=== PATIENT | female | born 1975 | race African-American/Black ===

== ENCOUNTER 2016-09-29 21:23 | Inpatient (IN) | payer OTHER ==
[~2016-09-29] VITALS: Ht 170.2 cm; Wt 90.9 kg
[~2016-09-29 21:23] MED LIST: BENZ1 PO; FLUP5 PO
[2016-09-29 21:25] VITALS: BP 136/79; PULSE 98; RESP 16; TEMP 98.4; O2SAT 96
[2016-09-29 23:40] VITALS: BP 142/71; PULSE 76; RESP 16; O2SAT 96
[2016-09-30 00:07] VITALS: RESP 16; O2SAT 96
[2016-09-30 00:22] LABS: BASOPHIL % 0.6 % (0.0-2.0); EOSINOPHIL # 0.1 TH/MM3 (0-0.4); EOSINOPHIL % 2.3 % (0.0-4.0); HEMATOCRIT 38.9 % (35.0-46.0); HEMO FLAGS DIFF FINAL; LYMPH % 41.2 % (9.0-44.0); LYMPHOCYTE # 2.6 TH/MM3 (1.0-4.8); MEAN CELL VOLUME 86.2 FL (80.0-100.0); MEAN CORPUSCULAR HEMOGLOBIN 28.3 PG (27.0-34.0); MEAN CORPUSCULAR HGB CONC 32.8 % (32.0-36.0); MONO % 8.4 % (0.0-8.0); NEUT % 47.5 % (16.0-70.0); PLATELET COUNT 219 TH/MM3 (150-450); RED BLOOD COUNT 4.51 MIL/MM3 (4.00-5.30); RED CELL DISTRIBUTION WIDTH 14.2 % (11.6-17.2); WHITE BLOOD COUNT 6.3 TH/MM3 (4.0-11.0)
--- NOTE | 2016-09-30 00:33 | RADRPT ---
EXAM DATE/TIME: 09/30/2016 00:24 [place] COMPARISON: CHEST PA & LAT, May 28, 2015, 14:54. INDICATIONS : Chest pain. MEDICAL HISTORY : None. SURGICAL HISTORY : None. ENCOUNTER: Initial ACUITY: 2 weeks PAIN SCORE: 5/10 LOCATION: Bilateral chest FINDINGS: The lungs are clear without infiltrate, nodule, or mass. There is no appreciable pleural effusion fo r technique. Heart and mediastinum are unremarkable. CONCLUSION: No acute cardiopulmonary disease. Fang Herrera MD on September 30, 2016 at 0:31 Board Certified Radiologist. This report was verified electronically.
[2016-09-30 00:44] LABS: ALT (GPT) 32 U/L (10-53)
[2016-09-30 00:46] LABS: ANION GAP 9 MEQ/L (5-15); AST (GOT) 39 U/L (15-37); BLOOD UREA NITROGEN 11 MG/DL (7-18); CHLORIDE 105 MEQ/L (98-107); GLOMERULAR FILTRATION RATE 104 ML/MIN (>89); POTASSIUM 3.3 MEQ/L (3.5-5.1); SODIUM (NA) 139 MEQ/L (136-145)
[2016-09-30 01:35] LABS: ACETAMINOPHEN LESS THAN 2.0 MCG/ML (10.0-30.0); ALKALINE PHOSPHATASE 80 U/L (45-117); CREATINE KINASE 985 U/L (26-192); TOTAL BILIRUBIN ADULT 0.3 MG/DL (0.2-1.0)
[2016-09-30 02:00] LABS: CKMB 4.4 NG/ML (0.5-3.6)
[2016-09-30] MEDS ORDERED: SODIUM CHLOR 0.9% 1000 ML INJ 1,000 ML IV ONE (02:00)
--- NOTE | 2016-09-30 02:21 | PD ---
HPI Chief Complaint: Psychiatric Symptoms Time Seen by Provider: 00:01 Travel History International Travel<30 days: No Contact w/Intl Traveler<30days: No Traveled to known affect area: No History of Present Illness HPI The patient is a 41 year old female who presents to the [facility] emergency department with a history of schizophrenia who reports concerns that today she has been hearing voices. She denies having any suicidal or homicidal ideations, however she reports that she cannot concentrate because of the voices. She reports that she is off of medication for schizophrenia. She cannot recall what she was last on, however she reports that she has been on Haldol and Zyprexa in the past. The patient is requesting a psychiatric screen. The patient additionally reports to me that she's had generalized body aches. The patient according to the nurse's notes also complained of a right- sided chest pain. Unfortunately, the patient has difficulty providing much of her history as she is tangential on examination. On review of systems, the patient denies any recent fevers, cough, congestion, neck pain, shortness of breath, abdominal pain, vomiting, diarrhea, urinary symptoms, or neurologic symptoms. [facility] Past Medical History Narrative Medical The patient's past medical history is significant for schizophrenia, prior history of cerebrovascular accident, diabetes mellitus, history of myocardial infarction in 1990 and 1996. Cancer: No Cardiovascular Problems: Yes ([place] 36 [place] ago) Cerebrovascular Accident: Yes (CVA 1997) Diabetes: Yes Patient Takes Glucophage: Yes Diminished Hearing: No Headaches: No Psychiatric: Yes (Paranoid Schizophrenia) Immunizations Current: Yes Myocardial Infarction: Yes (1996) Schizophrenia: Yes Seizures: No Tetanus Vaccination: Unknown Influenza Vaccination: No ?: Not LMP: 09/23/16 Menopausal: No : 3 Para: 1 Past Surgical History Narrative Surgical The patient's past surgical history is significant for an exploratory laparoscopy, prior history of cardiac surgery. Abdominal Surgery: Yes (EXLORATORY LAPROSCOPY) Cardiac Surgery: Yes ("CARDIAC IMPLANT") Social History Alcohol Use: No Tobacco Use: Yes (04/20 ppd) Substance Use: No (PT DENIES) Allergies-Medications (Allergen,Severity, Reaction): Coded Allergies: No Known Allergies (Unverified , 09/16/15) Reported Meds & Prescriptions Reported Meds & Active Scripts Active No Active Prescriptions or Reported Medications Review of Systems Except as stated in HPI: all other systems reviewed are Neg General / Constitutional: No: Fever Eyes: No: Visual changes HENT: No: Headaches Cardiovascular: Positive: Chest Pain or Discomfort (reported in right-side of chest), No: Diaphoresis, Dyspnea on exertion Respiratory: No: Shortness of Breath Gastrointestinal: No: Nausea, Vomiting, Diarrhea, Abdominal Pain Genitourinary: No: Dysuria Musculoskeletal: Positive: Myalgias, No: Pain Skin: No Rash Neurologic: No: Weakness Psychiatric: No: Depression Endocrine: No: Polydipsia Hematologic/Lymphatic: No: Easy Bruising Physical Exam Narrative General: The patient is a well-developed well-nourished female in no acute distress. Head and Neck exam: Head is normocephalic atraumatic. Eyes: EOMI, pupils are equal round and reactive to light. Nose: Midline septum with pink mucous membranes Mouth: Dentition unremarkable. Moist mucus membranes. Posterior oropharynx is not erythematous. No tonsillar hypertrophy. Uvula midline. Airway patent. Neck: No palpable lymphadenopathy. No nuchal rigidity. No thyromegaly. Cardiovascular: Regular rate and rhythm without murmurs, gallops, or rubs. No pulse deficit to the extremities. Lungs: Clear to auscultation bilaterally. No wheezes, rhonchi, or rales. Abdomen: Soft, without tenderness to palpation in all 4 quadrants of the abdomen. No guarding, rebound, or rigidity. Normal Bowel sounds are audible. No tenderness on palpation of McBurney's point. Extremities: No calf tenderness on palpation.No clubbing, cyanosis, or edema. 2 + pulses in all 4 extremities. Back: No spinous process tenderness to palpation. No costovertebral angle tenderness to palpation. Neurologic Exam: Cranial nerves 2-12 were intact on exam. Strength is 5/5 in all 4 extremities. No sensory deficits noted. Skin Exam: No rash noted. Intact skin that is warm and dry. Data Data Last Documented VS Vital Signs Date Time Temp Pulse Resp B/P Pulse Ox O2 Delivery O2 Flow Rate FiO2 09/30/16 05:32 72 16 129/66 97 Room Air 09/29/16 21:25 98.4 Orders Electrocardiogram (09/30/16 00:02) Complete Blood Count With Diff (09/30/16 00:02) Comprehensive Metabolic Panel (09/30/16 00:02) Creatine Kinase (Cpk) (09/30/16 00:02) Ckmb (Isoenzyme) Profile (09/30/16 00:02) Troponin I (09/30/16 00:02) Lipase (09/30/16 00:02) Urinalysis - C+S If Indicated (09/30/16 00:02) D-Dimer (09/30/16 00:02) Magnesium (Mg) (09/30/16 00:02) Thyroid Stimulating Hormone (09/30/16 00:02) Chest, Single Ap (09/30/16 00:02) Iv Access Insert/Monitor (09/30/16 00:02) Ecg Monitoring (09/30/16 00:02) Oximetry (09/30/16 00:02) Ed Urine Pregnancytest Poc (09/30/16 00:02) Drug Screen, Random Urine (09/30/16 00:02) Alcohol (Ethanol) (09/30/16 00:02) Salicylates (Aspirin) (09/30/16 00:02) Tylenol (Acetaminophen) (09/30/16 00:02) Psych Screen (09/30/16 00:02) Aspirin Chew (Aspirin Chew) (09/30/16 09:00) CKMB (09/30/16 00:10) CKMB% (09/30/16 00:10) Sodium Chlor 0.9% 1000 Ml Inj (Ns 1000 M (09/30/16 02:00) Labs Laboratory Tests Test 09/30/16 00:10 White Blood Count 6.3 TH/MM3 Red Blood Count 4.51 MIL/MM3 Hemoglobin 12.8 GM/DL Hematocrit 38.9 % Mean Corpuscular Volume 86.2 FL Mean Corpuscular Hemoglobin 28.3 PG Mean Corpuscular Hemoglobin 32.8 % Concent Red Cell Distribution Width 14.2 % Platelet Count 219 TH/MM3 Mean Platelet Volume 8.1 FL Neutrophils (%) (Auto) 47.5 % Lymphocytes (%) (Auto) 41.2 % Monocytes (%) (Auto) 8.4 % Eosinophils (%) (Auto) 2.3 % Basophils (%) (Auto) 0.6 % Neutrophils # (Auto) 3.0 TH/MM3 Lymphocytes # (Auto) 2.6 TH/MM3 Monocytes # (Auto) 0.5 TH/MM3 Eosinophils # (Auto) 0.1 TH/MM3 Basophils # (Auto) 0.0 TH/MM3 CBC Comment DIFF FINAL Differential Comment D-Dimer Quantitative (PE/DVT) 0.30 MG/L FEU Sodium Level 139 MEQ/L Potassium Level 3.3 MEQ/L Chloride Level 105 MEQ/L Carbon Dioxide Level 25.0 MEQ/L Anion Gap 9 MEQ/L Blood Urea Nitrogen 11 MG/DL Creatinine 0.75 MG/DL Estimat Glomerular Filtration 104 ML/MIN Rate Random Glucose 91 MG/DL Calcium Level 7.9 MG/DL Magnesium Level 2.0 MG/DL Total Bilirubin 0.3 MG/DL Aspartate Amino Transf 39 U/L (AST/SGOT) Alanine Aminotransferase 32 U/L (ALT/SGPT) Alkaline Phosphatase 80 U/L Total Creatine Kinase 985 U/L Creatine Kinase MB 4.4 NG/ML Creatine Kinase MB % 0.4 % Troponin I LESS THAN 0.02 NG/ML Total Protein 7.3 GM/DL Albumin 3.7 GM/DL Lipase 53 U/L Thyroid Stimulating Hormone 0.948 uIU/ML 3rd Gen Salicylates Level 5.1 MG/DL Acetaminophen Level LESS THAN 2.0 MCG/ML Ethyl Alcohol Level LESS THAN 3 MG/DL MDM Medical Decision Making Medical Screen Exam Complete: Yes Emergency Medical Condition: Yes Medical Record Reviewed: Yes Interpretation(s) Last Impressions Chest X-Ray 09/30/16 0002 Signed Impressions: Service Date/Time: Friday, September 30, 2016 00:24 - CONCLUSION: No acute cardiopulmonary disease. Fang Herrera MD Differential Diagnosis Exacerbation of schizophrenia due to medication noncompliance, versus substance induced mood disorder Narrative Course During the course of the patients emergency department visit, the patients history, examination, and differential diagnosis were reviewed with the patient. The patient had IV access obtained and blood work sent for analysis. The patient was placed on a tree tapping laborer with oximetry and blood pressure monitoring. An EKG was ordered. A psychiatric screen was ordered. The patient was initially provided aspirin and 62 mg by mouth 1, normal saline 1 L IV fluid bolus was administered. The patients laboratory studies were reviewed and remarkable for a CBC that shows a white count of 6.3, hemoglobin 12.8, platelets 219 with 8.4 monocytes. CMP is remarkable for potassium of 3.3 which was supplemented orally, calcium 7.9, AST 39, CPK 9085, CK-MB percent 0.4, troponin I less than 0.02, lipase 53, TSH 0.948, d-dimer 0.3 decreased the likelihood of pulmonary embolism in this patient with no other significant risk factors, acetaminophen less than 2, alcohol level less than 3, salicylate 5.1 Radiology studies were reviewed and remarkable for a chest x-ray that shows no acute abnormality. The patient has been medically cleared for evaluation by the psychiatric screener. The patient reports that she would like to be seen by the psychiatric screener as she is currently having auditory hallucinations. She reports having a history of schizophrenia and was previously on antipsychotics. Diagnosis Primary Impression: Paranoid schizophrenia Scripts No Active Prescriptions or Reported Meds Medina Chappell MD Sep 30, 2016 02:21
[2016-09-30 05:32] VITALS: BP 129/66; PULSE 72; RESP 16; O2SAT 97
--- NOTE | 2016-09-30 07:48 | EKG ---
Date Performed: 09/30/2016 Time Performed: 06:09:30 PTAGE: 41 years EKG: SINUS BRADYCARDIA BORDERLINE ECG NO SIGNIFICANT CHANGE FROM PRIOR ELECTROCARDIOGRAM. PREVIOUS TRACING : 12/15/2014 06.56 DOCTOR: Kleber Hendricks Interpretating Date/Time 10/02/2016 07:35:37
--- NOTE | 2016-09-30 07:58 | EKG ---
Date Performed: 09/29/2016 Time Performed: 23:37:06 PTAGE: 41 years EKG: Sinus rhythm NORMAL ECG NO PREVIOUS TRACING DOCTOR: Kleber Hendricks Interpretating Date/Time 09/30/2016 07:57:03
[2016-09-30] MEDS: ASPIRIN 81 MG CHEW TAB CHEW SCH (09:13)
[2016-09-30] MEDS ORDERED: ACETAMINOPHEN 325 MG TAB PO PRN (10:00)
[2016-09-30] MEDS ORDERED: diphenhydrAMINE HCL 50 MG/ML VIAL IM PRN (10:00)
[2016-09-30] MEDS ORDERED: LORazepam 0.5 MG TAB PO PRN (10:00)
[2016-09-30] MEDS ORDERED: LORazepam 2 MG/ML VIAL IM PRN ×2 (10:00)
[2016-09-30] MEDS ORDERED: MAGNESIUM HYDROXIDE SUSP 30 ML CUP PO PRN (10:00)
[2016-09-30] MEDS ORDERED: diphenhydrAMINE HCL 50 MG CAP PO PRN (10:00)
[2016-09-30] MEDS ORDERED: ALUMINUM/MAGNESIUM/SIMETH 30 ML CUP PO PRN (10:00)
--- NOTE | 2016-09-30 10:16 | HHI.HP ---
Provisional Diagnosis Admission Date Sep 30, 2016 at 09:59 [place] I. Chronic paranoid schizophrenia Certification of Person's Competence To Provide Express and Informed Consent I have personally examined Chrissie Ramirez , a person being served at [facility] on, Sep 30, 2016 10:04. Express and informed consent means consent voluntarily given in writing, by a competent person, after sufficient explanation and disclosure of the subject matter involved to enable the person to make a knowing and willful decision without any element of force, fraud, deceit, duress, or other form of constraint or coercion. This person is 18 years of age or older, is not now known to be incompetent to consent to treatment with a guardian advocate, and does not have a health care surrogate or proxy currently making medical treatment decisions. I have found this person to be one of the following: [X] Competent to provide express and informed consent, as defined above, for voluntary admission to this facility and is competent to provide express and informed consent for treatment. He/she has the consistent capacity to make well reasoned, willful, and knowing decisions concerning his or her medical or mental health treatment. The person fully and consistently understands the purpose of the admission for examination/placement and is fully capable of personally exercising all rights assured [place] [] Incompetent to provide express and informed consent to voluntary admission, and this is incompetent to provide express and informed consent to treatment. The person must be transferred to involuntary status and a petition for a guardian advocate filed with the Circuit Court. [] Refusing to provide express and informed consent to voluntary admission but is competent to provide express and informed consent for treatment. The person must be discharged or transferred to involuntary status. Form shall be completed within 24 hours of a person's arrival at the receiving facility and filed in the clinical record of each person: 1. Admitted on a voluntary basis 2. Permitted to provide express and informed consent to his/her own treatment 3. Allowed to transfer from involuntary to voluntary status 4. Prior to permitting a person to consent to his or her own treatment after having been previously found incompetent to consent to treatment. History of Present Illness Capacity: Has Capacity HPI This is a 41-year-old female with a long history of chronic paranoid schizophrenia. She has been admitted to this institution in 2014 with the same diagnosis. She came into the emergency department last evening, voluntarily, complaining of auditory hallucinations. She tells this physician the auditory hallucinations are negativistic in nature and say derogatory things about her as well as give her commands to harm herself. However, she is unable to be specific as she is a poor historian due to frequent looseness of associations. She is making inappropriate comments such as the [employer] has been sold and [place] with. She admits to being noncompliant with psychotropic medications but lists Risperdal and Depakote as to that she has taken in the past. She is unable to care for herself at this time because her thoughts are disturbed by the hallucinations, which create thought blocking. She is also noted to have a markedly elevated CPK and she was complaining of chest pain last night due to her psychotic symptoms, including command auditory hallucinations, paranoid thinking, loose associations, and medical problems including diabetes, history of CVA and history of GA, the patient is felt to be unable to care for herself and in danger of harming herself. Review of Systems ROS Limitations: Clinical Condition, Psychotic Past Psych History Psychological trauma history Previously diagnosed with chronic paranoid schizophrenia. Violence risk - others (6 mos) Minimal Violence risk - self (6 mos) Moderate to severe. Substance Abuse History Drugs/Alcohol past 12 months Denied at this time. Past Family Social History Coded Allergies: No Known Allergies (Unverified , 09/16/15) No Active Prescriptions or Reported Meds Current Medications Medications (Trade) Dose Ordered Sig/Tan Route Start Time Stop Time Status Last Admin (Aspirin Chew) 162 mg DAILY CHEW 09/30/16 09:00 09/30/16 09:13 Family History Unknown due to patient's psychosis. Social History Patient is not employed. She does receive disability. She denies a history of alcohol or drug abuse. Toxicology screen was negative today. She does have multiple medical issues including diabetes, heart disease and history of CVA. Patient's Strengths (min. 2) Resilient and has access to healthcare. Physical Exam GENERAL: SKIN: Warm and dry. HEAD: Normocephalic. EYES: No scleral icterus. No injection or drainage. NECK: Supple, trachea midline. No JVD or lymphadenopathy. CARDIOVASCULAR: Regular rate and rhythm without murmurs, gallops, or rubs. RESPIRATORY: Breath sounds equal bilaterally. No accessory muscle use. GASTROINTESTINAL: Abdomen soft, non-tender, nondistended. MUSCULOSKELETAL: No cyanosis, or edema. BACK: Nontender without obvious deformity. No CVA tenderness. Vital Signs Vital Signs Date Time Temp Pulse Resp B/P Pulse Ox O2 Delivery O2 Flow Rate FiO2 09/30/16 05:32 72 16 129/66 97 Room Air 09/29/16 21:25 98.4 Mental Status Examination Speech: Unremarkable, Other Orientation: x3 Memory: Unremarkable Thought Process: Loose Association Thought Content: Bizarre thinking, Paranoid Hallucination Type: Auditory Attention and Concentration: Abnormal Suicidal Ideation: No Previous Suicide Attempts: No Homicidal Ideation: No Previous Homicide Attempts: No Insight: Fair Judgment: Unrealistic Affect: Anxious Affect if Inappropriate: Blunt Mood: Appropriate, Anxious Motor Activity: Extra pyramidal symptoms Assessment & Plan Problem List: (1) Paranoid schizophrenia ICD Code: F20.0 Assessment & Plan Estimated LOS: 7 days 41-year-old patient with long history of chronic paranoid schizophrenia, having an acute exacerbation and multiple medical issues. Patient's psychosis is demonstrated by her auditory hallucinations, which are disturbing to her and of a command and derogatory nature. She is also demonstrating loose associations and paranoid thinking, reporting the [employer] has been taken. She is having difficulty with managing her multiple medical issues including diabetes, heart disease, and elevated CPK. This physician finds she is at significant danger of self neglect and self- harm. She is being admitted to the psychiatry inpatient unit for stabilization on psychiatric medications, which she admits she has been noncompliant with. She also requires stabilization regarding her multiple medical conditions. This physician has ordered a hospital consult for this. Also ordered was a comprehensive metabolic profile and lipid profile to measure the patient's degree of diabetic control, lipid appropriateness and possible need for medication management. We are ordering a CBC to determine if infection is possible. An EKG is being ordered to evaluate her cardiac condition before implementing antipsychotic therapies and possibly aggravating her underlying heart disease. This physician spoke with the patient's nurse regarding her inability to care for herself. Finally, case workers will be asked to obtain more information regarding her past psychiatric treatment, family support and living situation. Harshad Foley MD Sep 30, 2016 10:15
[2016-09-30 10:17] VITALS: BP 169/80; PULSE 69; RESP 18; TEMP 98.5; O2SAT 96
[2016-09-30 12:35] VITALS: BP 169/80; TEMP 98
[2016-09-30 13:26] VITALS: BP 139/79; PULSE 64; RESP 16; O2SAT 96
--- NOTE | 2016-09-30 14:25 | EKG ---
Date Performed: 09/30/2016 Time Performed: 07:25:42 PTAGE: 41 years EKG: Sinus rhythm PROLONGED QT INTERVAL ABNORMAL ECG NO SIGNIFICANT CHANGE FROM PRIOR ELECTROCARDIOGRAM. PREVIOUS TRACING : 09/30/2016 06.09 DOCTOR: Kleber Hendricks Interpretating Date/Time 09/30/2016 14:25:01
--- NOTE | 2016-09-30 15:57 | PD.CONS ---
[facility] By Dr. Foley Reason for Consult Elevated CPK Primary Care Physician No Primary Care Physician Diagnoses: History of Present Illness Written by VIKKI Toussaint acting as scribe for [Kit] on 09/30/16 at 14:26. 41 y/o female with a history of schizoaffective disorder came to the hospital for auditory hallucinations. [facility] was consulted for an elevated CPK level found on admission. Patient received 1L NS in the ED. She denies any other medical history, denies any muscle pain, or sob. She states she is just hungry. Review of Systems Constitutional: DENIES: Fever, Chills Respiratory: DENIES: Cough, Sputum production, Shortness of breath Cardiovascular: DENIES: Chest pain Gastrointestinal: DENIES: Constipation, Diarrhea, Nausea, Vomiting Musculoskeletal: DENIES: Muscle aches, Back pain, Neck pain Neurologic: DENIES: Headache, Localized weakness Past Family Social History Allergies: Coded Allergies: No Known Allergies (Unverified , 09/16/15) Past Medical History Schizoaffective disorder Past Surgical History Patient denies any surgeries Reported Medications Reported Meds & Active Scripts Active No Active Prescriptions or Reported Medications Active Ordered Medications Current Medications Medications (Trade) Dose Ordered Sig/Tan Route Start Time Stop Time Status Last Admin (Aspirin Chew) 162 mg DAILY CHEW 09/30/16 09:00 09/30/16 09:13 (Ativan) 1 mg Q6H PRN PO 09/30/16 10:00 (Ativan Inj) 1 mg Q6H PRN IM 09/30/16 10:00 (Benadryl) 50 mg Q6H PRN PO 09/30/16 10:00 (Benadryl Inj) 50 mg Q6H PRN IM 09/30/16 10:00 (Tylenol) 650 mg Q4H PRN PO 09/30/16 10:00 (Milk Of Magnesia Liq) 30 ml DAILY PRN PO 09/30/16 10:00 (Mag-Al Plus Susp Liq) 30 ml Q6H PRN PO 09/30/16 10:00 (Habitrol 21 Mg Patch.24 Hr) 1 patch DAILY T-DERMAL 10/01/16 09:00 (Desyrel) 50 mg HS PRN PO 09/30/16 21:00 Miscellaneous Information 1 HS T-DERMAL 10/01/16 21:00 Family History Patient denies any family history Social History Patient denies any tobacco, alcohol or illicit drugs Physical Exam Vital Signs Vital Signs Date Time Temp Pulse Resp B/P Pulse Ox O2 Delivery O2 Flow Rate FiO2 09/30/16 13:26 64 16 139/79 96 09/30/16 12:35 98.0 69 18 169/80 98 09/30/16 10:17 98.5 69 18 169/80 96 Room Air 09/30/16 05:32 72 16 129/66 97 Room Air 09/30/16 00:07 16 96 Room Air 09/29/16 23:40 76 16 142/71 96 Room Air 09/29/16 23:35 98 18 09/29/16 21:25 98.4 98 16 136/79 96 Room Air Physical Exam GENERAL: This is a well-nourished, well-developed patient, in no apparent distress. SKIN: No rashes, ecchymoses or lesions. Cool and dry. HEAD: Atraumatic. Normocephalic. EYES: Pupils equal round and reactive. ENT: Nose without bleeding, purulent drainage or septal hematoma. NECK: Trachea midline. No JVD or lymphadenopathy. Supple, nontender, no meningeal signs. CARDIOVASCULAR: Regular rate and rhythm without murmurs, gallops, or rubs. RESPIRATORY: Clear to auscultation. Breath sounds equal bilaterally. No wheezes , rales, or rhonchi. GASTROINTESTINAL: Abdomen soft, non-tender, nondistended. No guarding. MUSCULOSKELETAL: Extremities without clubbing, cyanosis, or edema. No calf tenderness. NEUROLOGICAL: Awake and alert. Motor and sensory grossly within normal limits. Normal speech. Laboratory Laboratory Tests Test 09/30/16 00:10 White Blood Count 6.3 Red Blood Count 4.51 Hemoglobin 12.8 Hematocrit 38.9 Mean Corpuscular Volume 86.2 Mean Corpuscular Hemoglobin 28.3 Mean Corpuscular Hemoglobin 32.8 Concent Red Cell Distribution Width 14.2 Platelet Count 219 Mean Platelet Volume 8.1 Neutrophils (%) (Auto) 47.5 Lymphocytes (%) (Auto) 41.2 Monocytes (%) (Auto) 8.4 Eosinophils (%) (Auto) 2.3 Basophils (%) (Auto) 0.6 Neutrophils # (Auto) 3.0 Lymphocytes # (Auto) 2.6 Monocytes # (Auto) 0.5 Eosinophils # (Auto) 0.1 Basophils # (Auto) 0.0 CBC Comment DIFF FINAL Differential Comment D-Dimer Quantitative (PE/DVT) 0.30 Sodium Level 139 Potassium Level 3.3 Chloride Level 105 Carbon Dioxide Level 25.0 Anion Gap 9 Blood Urea Nitrogen 11 Creatinine 0.75 Estimat Glomerular Filtration 104 Rate Random Glucose 91 Calcium Level 7.9 Magnesium Level 2.0 Total Bilirubin 0.3 Aspartate Amino Transf 39 (AST/SGOT) Alanine Aminotransferase 32 (ALT/SGPT) Alkaline Phosphatase 80 Total Creatine Kinase 985 Creatine Kinase MB 4.4 Creatine Kinase MB % 0.4 Troponin I LESS THAN 0.02 Total Protein 7.3 Albumin 3.7 Lipase 53 Thyroid Stimulating Hormone 0.948 3rd Gen Salicylates Level 5.1 Acetaminophen Level LESS THAN 2.0 Ethyl Alcohol Level LESS THAN 3 Result Diagram: 09/30/16 0010 09/30/16 0010 Assessment and Plan Problem List: (1) Paranoid schizophrenia ICD Code: F20.0 Status: Acute (2) Rhabdomyolysis ICD Code: M62.82 Status: Acute Assessment and Plan 41 y/o female with a history of schizoaffective disorder came to the hospital for auditory hallucinations. [facility] was consulted for an elevated CPK level found on admission. Paranoid schizophrenia -managed by psychiatry Mild Rhabdomyolysis CPK 985 -CPK level in AM -Encourage PO Fluids DVT prophylaxis: Ambulation Discussed Condition With Patient LauraMonie laughlin VIKKI Sep 30, 2016 15:57
[2016-09-30] MEDS: LORazepam 1 MG TAB PO PRN (17:00)
[2016-09-30 17:52] VITALS: BP 156/60; PULSE 65; RESP 18; TEMP 97.9; O2SAT 96
[2016-10-01 05:10] VITALS: BP 121/63; PULSE 71; RESP 16; TEMP 98.1; O2SAT 98
[2016-10-01] MEDS: ASPIRIN 81 MG CHEW TAB CHEW SCH (08:13)
[2016-10-01] MEDS ORDERED: NICOTINE 21 MG/24 HR PATCH T-DERMAL SCH (09:00)
[2016-10-01 11:10] LABS: AUTOMATED NEUTROPHIL # 2.3 TH/MM3 (1.8-7.7); BASOPHIL % 0.5 % (0.0-2.0); EOSINOPHIL # 0.1 TH/MM3 (0-0.4); EOSINOPHIL % 2.9 % (0.0-4.0); HEMATOCRIT 37.4 % (35.0-46.0); HEMO FLAGS DIFF FINAL; LYMPH % 39.1 % (9.0-44.0); LYMPHOCYTE # 1.8 TH/MM3 (1.0-4.8); MEAN CELL VOLUME 85.4 FL (80.0-100.0); MEAN CORPUSCULAR HEMOGLOBIN 28.5 PG (27.0-34.0); MEAN CORPUSCULAR HGB CONC 33.3 % (32.0-36.0); MONO % 9.2 % (0.0-8.0); NEUT % 48.3 % (16.0-70.0); PLATELET COUNT 200 TH/MM3 (150-450); RED BLOOD COUNT 4.38 MIL/MM3 (4.00-5.30); RED CELL DISTRIBUTION WIDTH 13.8 % (11.6-17.2); WHITE BLOOD COUNT 4.7 TH/MM3 (4.0-11.0)
[2016-10-01 11:26] LABS: ANION GAP 8 MEQ/L (5-15); AST (GOT) 20 U/L (15-37); BICARBONATE 27.7 MEQ/L (21.0-32.0); BLOOD UREA NITROGEN 10 MG/DL (7-18); CHLORIDE 106 MEQ/L (98-107); GLOMERULAR FILTRATION RATE 137 ML/MIN (>89); POTASSIUM 3.5 MEQ/L (3.5-5.1); SODIUM (NA) 142 MEQ/L (136-145)
[2016-10-01 11:53] LABS: ALKALINE PHOSPHATASE 69 U/L (45-117); ALT (GPT) 22 U/L (10-53); CREATINE KINASE 479 U/L (26-192); HDL CHOLESTEROL 43.8 MG/DL (40.0-60.0); LDL CHOLESTEROL 108 MG/DL (0-99); TOTAL BILIRUBIN ADULT 0.2 MG/DL (0.2-1.0)
[2016-10-01 12:06] LABS: CKMB 2.5 NG/ML (0.5-3.6)
--- NOTE | 2016-10-01 13:01 | HHI.PYPN ---
Subjective Remarks Patient seen and examined with counselor and nurse. Chart reviewed. Case discussed with nursing staff who reports that the patient has been somewhat behaviorally disorganized and internally stimulated. She also notes that the patient needed prompting for her ADLs. On my examination today, the patient reports that she has been experiencing auditory hallucinations commenting on her actions for a few weeks without clear trigger. She denies any command auditory hallucinations. She says that she has been off of her psychotropic medications for 3 months. She endorses some low mood and associated depressive symptoms but denies any suicidal or homicidal ideation. Her sleep and appetite are fair. The patient articulated more delusional material to the counselor including that she has 3000 children. The patient reports that Risperdal works best for her. No physical complaints. Review of Systems ROS Limitations: Psychotic, Poor Historian Except as stated in HPI: all other systems reviewed are Neg Objective Alert: Yes [place]: Person, Place, Situation Mood: Depressed Affect: Flat Memory Intact: Comment (not formally assessed) Hallucinations: Auditory (commenting) Delusions: Yes Delusion Type: Paranoid Suicidal: Ideation (denies SI) Homicidal: Ideation (denies HI) Insight/Judgment Poor Remarks No motor abnormalities noted. Thought process fairly linear. Grooming and hygiene poor. Speech somewhat slow with increased speech latency. Labs Test 10/01/16 10:25 White Blood Count 4.7 TH/MM3 Red Blood Count 4.38 MIL/MM3 Hemoglobin 12.5 GM/DL Hematocrit 37.4 % Mean Corpuscular Volume 85.4 FL Mean Corpuscular Hemoglobin 28.5 PG Mean Corpuscular Hemoglobin 33.3 % Concent Red Cell Distribution Width 13.8 % Platelet Count 200 TH/MM3 Mean Platelet Volume 8.4 FL Neutrophils (%) (Auto) 48.3 % Lymphocytes (%) (Auto) 39.1 % Monocytes (%) (Auto) 9.2 % Eosinophils (%) (Auto) 2.9 % Basophils (%) (Auto) 0.5 % Neutrophils # (Auto) 2.3 TH/MM3 Lymphocytes # (Auto) 1.8 TH/MM3 Monocytes # (Auto) 0.4 TH/MM3 Eosinophils # (Auto) 0.1 TH/MM3 Basophils # (Auto) 0.0 TH/MM3 CBC Comment DIFF FINAL Differential Comment Sodium Level 142 MEQ/L Potassium Level 3.5 MEQ/L Chloride Level 106 MEQ/L Carbon Dioxide Level 27.7 MEQ/L Anion Gap 8 MEQ/L Blood Urea Nitrogen 10 MG/DL Creatinine 0.59 MG/DL Estimat Glomerular Filtration 137 ML/MIN Rate Random Glucose 77 MG/DL Calcium Level 8.0 MG/DL Total Bilirubin 0.2 MG/DL Aspartate Amino Transf 20 U/L (AST/SGOT) Alanine Aminotransferase 22 U/L (ALT/SGPT) Alkaline Phosphatase 69 U/L Total Creatine Kinase 479 U/L Creatine Kinase MB 2.5 NG/ML Creatine Kinase MB % 0.5 % Total Protein 6.3 GM/DL Albumin 3.2 GM/DL Triglycerides Level 82 MG/DL Cholesterol Level 168 MG/DL LDL Cholesterol 108 MG/DL HDL Cholesterol 43.8 MG/DL Cholesterol/HDL Ratio 3.83 RATIO Vitamin B12 Level 507 PG/ML 25-Hydroxy Vitamin D Total 17.6 ng/ML Thyroid Stimulating Hormone 0.552 uIU/ML 3rd Gen Valproic Acid (Depakene) Level LESS THAN 3 MCG/ML Labs reviewed. CBC unremarkable. CMP fairly unremarkable. TSH within normal limits. Vitamin D level low. Vitamin B12 level within normal limits. CK is downtrending. EKG read as sinus rhythm with QTC within normal limits. Vitals/IOs Vital Signs Date Time Temp Pulse Resp B/P Pulse Ox O2 Delivery O2 Flow Rate FiO2 10/01/16 05:10 98.1 71 16 121/63 98 09/30/16 10:17 Room Air Intake and Output 09/30/16 09/30/16 10/01/16 08:00 16:00 00:00 Intake Total 360 ml Balance 360 ml Assessment & Plan Problem List: (1) Paranoid schizophrenia ICD Code: F20.0 Assessment & Plan Initiate Risperdal 1 mg twice daily with plans to titrate to effect. Could consider long-acting injectable form of Risperdal. Trend CK and BMP. Continue to monitor on the inpatient unit. Continue other medications and care as ordered. Justification for Cont. Inpt. Impairment in reality construction. Medication changes in process. High risk for decompensation in a less restrictive environment. Discharge Planning Pending psychiatric stabilization. Request HC Surrog/Guard Advoc?: No Jens Arriaza MD Oct 01, 2016 13:01
[2016-10-01] MEDS: LORazepam 1 MG TAB PO PRN ×2 (13:13→21:06)
[2016-10-01] MEDS ORDERED: risperiDONE 1 MG TAB PO ONE (13:15)
--- NOTE | 2016-10-01 13:33 | HHI.PR ---
Subjective Remarks Patient reports she is feeling okay. She is eating and drinking well. She denies any muscle cramps or pain. Objective Vitals Vital Signs Date Time Temp Pulse Resp B/P Pulse Ox O2 Delivery O2 Flow Rate FiO2 10/01/16 05:10 98.1 71 16 121/63 98 09/30/16 17:52 97.9 65 18 156/60 96 I/O 09/30/16 09/30/16 09/30/16 10/01/16 10/01/16 10/01/16 07:00 15:00 23:00 07:00 15:00 23:00 Intake Total 360 ml Balance 360 ml Intake Oral 360 ml Result Diagram: 10/01/16 1025 10/01/16 1025 Imaging Last Impressions Chest X-Ray 09/30/16 0002 Signed Impressions: Service Date/Time: Friday, September 30, 2016 00:24 - CONCLUSION: No acute cardiopulmonary disease. Fang Herrera MD Objective Remarks GENERAL: This is a well-nourished, well-developed patient, in no apparent distress. CARDIOVASCULAR: Normal rate and regular rhythm without murmurs, gallops, or rubs. RESPIRATORY: Good respiratory efforts. Breath sounds equal and clear to auscultation bilaterally. GASTROINTESTINAL: Abdomen soft, non-tender, non-distended. Normal active bowel sounds MUSCULOSKELETAL: Extremities without cyanosis, or edema. NEURO: Alert & Oriented. Moves all ext x4. Normal speech PSYCH: Anxious A/P Problem List: (1) Paranoid schizophrenia ICD Code: F20.0 Status: Acute (2) Rhabdomyolysis ICD Code: M62.82 Status: Acute Assessment and Plan 41 y/o female admits to psychiatric unit for artery kentrell hallucinations. Hospitalist service following for elevated CPK found on admission. Paranoid schizophrenia -Management per psychiatry Mild Rhabdomyolysis CPK 985>>> 400s -Patient remained asymptomatic. Continue to encourage oral fluid intake. Patient is stable from a medical standpoint. Will sign off. Please call or reconsult with questions. Dano Pantoja MD Oct 01, 2016 13:32
--- NOTE | 2016-10-01 15:26 | EKG ---
Date Performed: 10/01/2016 Time Performed: 07:44:13 PTAGE: 41 years EKG: Sinus rhythm NORMAL ECG Compared to prior tracing no significant change PREVIOUS TRACING : 09/30/2016 07.25 DOCTOR: Rhett Luna Interpretating Date/Time 10/01/2016 15:24:55
[2016-10-01 15:58] VITALS: BP 121/75; PULSE 73; RESP 17; TEMP 97.2; O2SAT 99
[2016-10-01 16:38] LABS: HEMOGLOBIN A1b 1.6 %; HEMOGLOBIN Ao 85.9 %; HEMOGLOBIN LA1C 1.8 %; HEMOGLOBIN P3 3.6 %
[2016-10-01] MEDS ORDERED: REMOVE OLD NICODERM (NICOTINE) PATCH T-DERMAL SCH (21:00)
[2016-10-01] MEDS: risperiDONE 1 MG TAB PO SCH (21:06)
[2016-10-02 06:25] VITALS: BP 124/80; PULSE 82; RESP 18; TEMP 98.1; O2SAT 98
[2016-10-02] MEDS: ASPIRIN 81 MG CHEW TAB CHEW SCH (09:02)
[2016-10-02] MEDS: CHOLECALCIFEROL (VIT D3) 1000 UNIT TAB PO SCH (09:03)
[2016-10-02] MEDS: risperiDONE 1 MG TAB PO SCH ×2 (09:15→20:48)
[2016-10-02 10:39] LABS: BICARBONATE 27.2 MEQ/L (21.0-32.0); POTASSIUM 3.3 MEQ/L (3.5-5.1)
--- NOTE | 2016-10-02 11:28 | HHI.PYPN ---
Subjective Remarks Patient seen and examined with counselor and nurse. Chart reviewed. Case discussed with nursing staff who reports that the patient has been seclusive to room but has been somewhat more reactive with regards to her affect. On my examination today, the patient does indeed seem more interactive with a brighter affect. She denies any suicidal or homicidal ideation. She denies any audiovisual hallucinations. No marilu delusional material, even when I try to question her along the lines of the material that the counselor elicited yesterday. She reports that she resides in a facility called [facility] Denies side effects from Risperdal, says that she usually takes 2mg BID. Review of Systems ROS Limitations: Poor Historian Except as stated in HPI: all other systems reviewed are Neg Objective Alert: Yes [place]: Person, Place, Situation Mood: Calm Affect: Appropriate Memory Intact: Comment (Seems fair on clinical exam) Hallucinations: Other (denies AVH today) Delusions: No Delusion Type: Other (no marilu delusional material) Suicidal: Ideation (denies suicidal ideation) Homicidal: Ideation (denies homicidal ideation) Insight/Judgment Poor Remarks No motor abnormalities noted. Grooming and hygiene fair. Thought process seems fairly linear. Labs Test 10/02/16 08:52 Sodium Level 141 MEQ/L Potassium Level 3.3 MEQ/L Chloride Level 105 MEQ/L Carbon Dioxide Level 27.2 MEQ/L Anion Gap 9 MEQ/L Blood Urea Nitrogen 9 MG/DL Creatinine 0.65 MG/DL Estimat Glomerular Filtration 122 ML/MIN Rate Random Glucose 89 MG/DL Calcium Level 8.1 MG/DL Total Creatine Kinase 366 U/L Labs reviewed. CK continues to trend downward. Hypokalemia noted. Vitals/IOs Vital Signs Date Time Temp Pulse Resp B/P Pulse Ox O2 Delivery O2 Flow Rate FiO2 10/02/16 06:25 98.1 82 18 124/80 98 09/30/16 10:17 Room Air Assessment & Plan Problem List: (1) Paranoid schizophrenia ICD Code: F20.0 Assessment & Plan Plan to titrate Risperdal through the weekend with target dose of 2 mg twice daily. To consider long-acting injectable antipsychotic. Replete potassium and recheck potassium level in the morning. Encourage fluids and recheck a CK in the morning. Continue to monitor on the inpatient unit. Continue other medications and care as ordered. Justification for Cont. Inpt. Medication changes in process. High risk for decompensation pending psychiatric stabilization. Discharge Planning Anticipate discharge after the weekend if patient continues to improve. Request HC Surrog/Guard Advoc?: No Jens Arriaza MD Oct 02, 2016 11:28
[2016-10-02] MEDS ORDERED: PILL SPLITTER OTHER PRN (11:45)
[2016-10-02] MEDS ORDERED: POTASSIUM CHLORIDE 10 MEQ CONTROLLED RELEASE TAB PO ONE (12:00)
[2016-10-02 12:07] LABS: CKMB 1.9 NG/ML (0.5-3.6)
[2016-10-02] MEDS: LORazepam 1 MG TAB PO PRN (16:09)
[2016-10-02 19:12] VITALS: BP 136/68; PULSE 66; RESP 17; TEMP 97.1; O2SAT 98
[2016-10-02] MEDS: traZODone HCL 50 MG TAB PO PRN (20:48)
[2016-10-03 06:14] VITALS: BP 128/57; PULSE 60; RESP 18; TEMP 98.2; O2SAT 97
[2016-10-03] MEDS: ASPIRIN 81 MG CHEW TAB CHEW SCH (08:29)
[2016-10-03] MEDS: CHOLECALCIFEROL (VIT D3) 1000 UNIT TAB PO SCH (08:29)
[2016-10-03] MEDS: risperiDONE 1 MG TAB PO SCH ×2 (08:31→21:00)
[2016-10-03 09:45] LABS: POTASSIUM 3.9 MEQ/L (3.5-5.1)
[2016-10-03 10:11] LABS: CKMB 1.7 NG/ML (0.5-3.6)
--- NOTE | 2016-10-03 14:23 | HHI.PYPN ---
Subjective Remarks Patient was seen and case discussed with nursing. Patient interviewed in bed. Per nursing patient has been secluded. Patient says that her auditory hallucinations are resolved. No specific delusions elicited. Thought process remains disorganized and tangential. Compliant with medications and tolerating them well. Denies suicidal ideation intent or plan Objective Alert: Yes [place]: Person, Place, Situation Mood: Calm Affect: Appropriate Memory Intact: Comment (Seems fair on clinical exam) Hallucinations: Other (denies AVH today) Delusions: No Delusion Type: Other (no marilu delusional material) Suicidal: Ideation (denies suicidal ideation) Homicidal: Ideation (denies homicidal ideation) Insight/Judgment Poor Labs Test 10/03/16 09:07 Potassium Level 3.9 MEQ/L Total Creatine Kinase 296 U/L Creatine Kinase MB 1.7 NG/ML Creatine Kinase MB % 0.6 % Vitals/IOs Vital Signs Date Time Temp Pulse Resp B/P Pulse Ox O2 Delivery O2 Flow Rate FiO2 10/03/16 06:14 98.2 60 18 128/57 97 09/30/16 10:17 Room Air Intake and Output 10/02/16 10/02/16 10/03/16 08:00 16:00 00:00 Intake Total 240 ml Balance 240 ml Assessment & Plan Problem List: (1) Paranoid schizophrenia ICD Code: F20.0 Assessment & Plan Continue current treatment plan Justification for Cont. Inpt. Patient will decompensate in a less restrictive setting Request HC Surrog/Guard Advoc?: No Franklin Soto DO Oct 03, 2016 14:22
[2016-10-03 18:00] VITALS: BP 128/91; PULSE 73; RESP 18; TEMP 98.2; O2SAT 97
[2016-10-04 05:44] VITALS: BP 145/82; PULSE 68; RESP 18; TEMP 98.1; O2SAT 97
[2016-10-04] MEDS: ASPIRIN 81 MG CHEW TAB CHEW SCH (08:57)
[2016-10-04] MEDS: CHOLECALCIFEROL (VIT D3) 1000 UNIT TAB PO SCH (08:57)
[2016-10-04] MEDS: risperiDONE 1 MG TAB PO SCH ×2 (09:01→21:20)
--- NOTE | 2016-10-04 13:47 | HHI.PYPN ---
Subjective Remarks Patient was seen and case discussed with nursing. Patient interviewed in bed, per nursing she is less seclusive and went outside for fresh air. No delusional material was elicited today. Patient denies auditory visual hallucinations. Per nursing, she is less occupied. Compliant with medications Objective Alert: Yes [place]: Person, Place, Date, Situation Mood: Calm Affect: Appropriate Memory Intact: Comment (Seems fair on clinical exam) Hallucinations: Other (denies AVH today) Delusions: No Delusion Type: Other (no marilu delusional material) Suicidal: Ideation (denies suicidal ideation) Homicidal: Ideation (denies homicidal ideation) Insight/Judgment Improving Vitals/IOs Vital Signs Date Time Temp Pulse Resp B/P Pulse Ox O2 Delivery O2 Flow Rate FiO2 10/04/16 05:44 98.1 68 18 145/82 97 09/30/16 10:17 Room Air Assessment & Plan Problem List: (1) Paranoid schizophrenia ICD Code: F20.0 Assessment & Plan Continue current treatment plan Justification for Cont. Inpt. Patient will decompensate in a less restrictive setting Request HC Surrog/Guard Advoc?: No Franklin Soto DO Oct 04, 2016 13:47
[2016-10-04 15:34] VITALS: BP 134/77; PULSE 95; RESP 18; TEMP 99.1; O2SAT 100
--- NOTE | 2016-10-04 16:11 | HHI.PYPN ---
Subjective Remarks Patient was seen and case discussed with nursing. Patient is pleasant and cooperative with exam. Remains mildly guarded during the interview. Per nursing she continues to be very seclusive to her room and only comes out for meals. Denies auditory or visual hallucinations. No delusions elicited. Since our conversation yesterday she is now compliant with her vital signs Objective Alert: Yes [place]: Person, Place, Date, Situation Mood: Calm Affect: Appropriate Memory Intact: Comment (Seems fair on clinical exam) Hallucinations: Other (denies AVH today) Delusions: No Delusion Type: Other (no marilu delusional material) Suicidal: Ideation (denies suicidal ideation) Homicidal: Ideation (denies homicidal ideation) Insight/Judgment Poor Vitals/IOs Vital Signs Date Time Temp Pulse Resp B/P Pulse Ox O2 Delivery O2 Flow Rate FiO2 10/04/16 15:34 99.1 95 18 134/77 100 09/30/16 10:17 Room Air Assessment & Plan Problem List: (1) Paranoid schizophrenia ICD Code: F20.0 Assessment & Plan Continue current treatment plan Justification for Cont. Inpt. Patient will decompensate in a less restrictive setting Request HC Surrog/Guard Advoc?: No Franklin Soto DO Oct 04, 2016 16:11
[2016-10-04] MEDS: traZODone HCL 50 MG TAB PO PRN (21:20)
[2016-10-05 06:17] VITALS: BP 110/60; PULSE 64; RESP 17; TEMP 96.7; O2SAT 97
[2016-10-05] MEDS: ASPIRIN 81 MG CHEW TAB CHEW SCH (08:35)
[2016-10-05] MEDS: CHOLECALCIFEROL (VIT D3) 1000 UNIT TAB PO SCH (08:35)
[2016-10-05] MEDS: risperiDONE 1 MG TAB PO SCH (08:37)
[2016-10-05] MEDS ORDERED: VITA1000 PO (10:14)
[2016-10-05] MEDS ORDERED: ASPI81CH25 CHEW (10:14)
[2016-10-05] MEDS ORDERED: RISP25P IM (10:14)
[2016-10-05] MEDS ORDERED: RISP2TAB37 PO (10:14)
--- NOTE | 2016-10-05 10:14 | HHI.DS ---
Psychiatry Discharge Summary Inpatient Psychiatric care?: Yes Advance Directive: No Reason Not Provided: Due to Patient Condition Mental Health AdvanceDirective: No Health Care Proxy: No Admission Admission Date Sep 30, 2016 at 09:59 Admission Diagnosis: (1) Paranoid schizophrenia ICD Code: F20.0 Brief History This is a 41-year-old female with a long history of chronic paranoid schizophrenia. She has been admitted to this institution in 2014 with the same diagnosis. She came into the emergency department last evening, voluntarily, complaining of auditory hallucinations. She tells this physician the auditory hallucinations are negativistic in nature and say derogatory things about her as well as give her commands to harm herself. However, she is unable to be specific as she is a poor historian due to frequent looseness of associations. She is making inappropriate comments such as the [employer] has been sold and [place] with. She admits to being noncompliant with psychotropic medications but lists Risperdal and Depakote as to that she has taken in the past. She is unable to care for herself at this time because her thoughts are disturbed by the hallucinations, which create thought blocking. She is also noted to have a markedly elevated CPK and she was complaining of chest pain last night due to her psychotic symptoms, including command auditory hallucinations, paranoid thinking, loose associations, and medical problems including diabetes, history of CVA and history of SD, the patient is felt to be unable to care for herself and in danger of harming herself. Tobacco Use In Past 30 Days: 5 or More Cigarettes/Day Alcohol Use: Never Hospital Course Patient was admitted to a locked, inpatient psychiatric unit. A general medical consultation was obtained. Appropriate precautions were in place throughout patient's hospital stay. Patient was seen and examined on the unit by psychiatry and also visited by counselor. Medications were adjusted. Patient tolerated medication changes well without side effects. Patient had improvement in her presenting psychiatric symptomatology. There was no evidence of any suicidality or homicidality on the inpatient unit. Charting indicates that the patient is sleeping and eating well. She has been compliant with medications. On the day of discharge: Patient seen and examined with counselor. Chart reviewed. Case discussed with nursing staff. Patient has been no behavioral problem overnight. On my examination this morning, the patient requests discharge from the inpatient psychiatric unit. She feels improved from a psychiatric standpoint versus admission. She denies any suicidal or homicidal ideation, intent or plan. She denies any audiovisual hallucinations. I can elicit no delusional beliefs. Mood is described as okay , and I can elicit no depressive or hypomanic/manic symptoms. She denies any side effects from medications. No physical complaints. After a discussion of the risks and benefits, she is agreeable to receiving Risperdal Consta prior to discharge, and I have explained to her the need for a temporary supplementation with oral Risperdal as prescribed on discharge. Weighing the acute, chronic, and protective factors and based on the available evidence, I quirk sander to a reasonable degree of medical certainty that the patient is at low imminent risk of harm to self or others from a mental illness as defined under the [place] act and her level of function is adequate for outpatient care. Patient will be discharged today with psychiatric follow-up as arranged by counselor. Patient is also to follow-up with primary care. We have offered to assist the patient in arranging for placement in some sort of structured living environment, but the patient has declined, preferring instead a [facility] referral. I have counseled the patient regarding warning signs for need to return to the psychiatric emergency room as part of the general safety plan. Results Blood Pressure 110 / 60 Vital Signs Date Time Temp Pulse Resp B/P Pulse Ox O2 Delivery O2 Flow Rate FiO2 10/05/16 06:17 96.7 64 17 110/60 97 Laboratory Tests Test 10/03/16 09:07 Total Creatine Kinase 296 U/L (26-192) Laboratory Results Test 10/01/16 10:25 Hemoglobin A1c 5.8 % (4.3-6.0) Triglycerides Level 82 MG/DL (42-150) Cholesterol Level 168 MG/DL (120-200) LDL Cholesterol 108 MG/DL (0-99) HDL Cholesterol 43.8 MG/DL (40.0-60.0) Valproic Acid (Depakene) Level LESS THAN 3 MCG/ML (50-100) Summary of Procedures None done Imaging Last Impressions Chest X-Ray 09/30/16 0002 Signed Impressions: Service Date/Time: Friday, September 30, 2016 00:24 - CONCLUSION: No acute cardiopulmonary disease. Fang Herrera MD Pending results at discharge: No Medications # of Antipsychotic meds at D/C: 1 Approp Antipsych med options 1 - Minimum of three failed multiple trials of monotherapy. 2 - Documented plan to taper to monotherapy due to previous use of multiple meds OR cross-taper in progress at D/C. 3 - Documentation of augmentation of Clozapine. 4 - Justification other than those listed in allowable values 1-3, document here : Discharge Discharge Date: Oct 05, 2016 Discharge Diagnosis: (1) Paranoid schizophrenia Diagnosis: Principal (stabilized) ICD Code: F20.0 GAF on discharge is 55 Mental Status Exam at Disch Patient is in hospital gown. She is fairly well groomed. She is maintaining basic hygiene and otherwise attending to her basic needs. She is awake and alert and oriented to person, Hospital and approximate date. No evidence of delirium. No motoric abnormalities noted. Speech is within normal limits for rate, tone and volume. Language and fund of knowledge seemed average. Focus and concentration intact. Memory grossly intact on clinical exam. Mood is okay and affect is somewhat blunted. Thought process linear. No loosening of associations. No evident delusions. Denies audiovisual hallucinations. Denies suicidal or homicidal ideation, intent or plan. Insight and judgment are likely chronically fair to poor. Pt Condition on Discharge: Stable Discharge Disposition: Discharge Home Discharge Instructions Diet Instructions: As Tolerated, No Restrictions Activities you can perform: Weight Bearing as Shahab Scheduled Appointment: as per counselor's notes New Medications: Risperidone (Risperdal) 2 Mg Tab 2 MG PO Q12HR Continue oral Risperdal for 21 days then stop. Be sure to get your next Risperdal Consta injection. Mental Health Days 21 Ref 0 TAB Risperidone Inj (Risperdal Consta Inj) 25 Mg Inj 25 MG IM Q14D This dose of Risperdal Consta is due on 10/19/2016. Mental Health # 2 Ref 0 VIAL Aspirin (Aspirin Low Strength) 81 Mg Chew 162 MG CHEW DAILY Health Days 15 Ref 1 EA Cholecalciferol (D 1000) 1,000 Unit Tab 2000 UNITS PO DAILY Vitamin D supplement Days 15 Ref 1 TAB Discharge Time <= 30 minutes Discharge/Advance Care Plan Health Problems: (1) Paranoid schizophrenia Goals to promote your health * To prevent worsening of your condition and complications * To maintain your health at the optimal level Directions to meet your goals Take your medications as prescribed Follow your dietary instruction Follow activity as directed Keep your appointments as scheduled Take your immunizations and boosters as scheduled If your symptoms worsen call your PCP, if no PCP go to Urgent Care Center or Emergency Room For 09/11 questions related to your inpatient stay or results of tests pending at discharge, please contact Dr. Jens Arriaza at Smoking is Dangerous to Your Health. Avoid second hand smoking Jens Arriaza MD Oct 05, 2016 10:14
[2016-10-05] MEDS ORDERED: risperiDONE EXT REL INJ 25 MG/2 ML VIAL IM ONE (11:00)
== END 2016-10-05 15:00 | disposition home or self-care (01) | DRG 885 ==
LOC: NEPE 21:23 → NEDA 09-30 09:59 → H260 09-30 12:45
PROVIDERS: ADMIT Psychiatry & Neurology Psychiatry; ATTEND Psychiatry & Neurology Psychiatry
DX: F20.0 Paranoid schizophrenia (principal); M62.82 Rhabdomyolysis; R74.8 Abnormal levels of other serum enzymes; Z91.19 Patient's noncompliance with other medical treatment and regimen; E11.9 Type 2 diabetes mellitus without complications; R07.89 Other chest pain; I25.2 Old myocardial infarction; Z86.73 Personal history of transient ischemic attack (TIA), and cerebral infarction without residual deficits; Z72.0 Tobacco use
CPT/HCPCS: 71010; 80048; 80053; 80061; 80164; 80307; 82306; 82550; 82552; 82607; 83036; 83690; 83735; 84132; 84443; 84484; 84703; 85025; 85379; 93005; 96360; 96361; J2794; J7030

== ENCOUNTER 2016-11-04 02:48 | Inpatient (IN) | payer OTHER ==
[~2016-11-04] VITALS: Ht 167.6 cm; Wt 89.0 kg
[~2016-11-04 02:48] MED LIST changes: +ASPI81CH25 CHEW; -BENZ1 PO; -FLUP5 PO; +RISP25P IM; +RISP2TAB37 PO; +VITA1000 PO
[2016-11-04 02:50] VITALS: BP_SYST 160; BP_DIAS 195; BP_DIAS 95; PULSE 101; RESP 16; TEMP 98.3; O2SAT 98
--- NOTE | 2016-11-04 04:00 | PD ---
HPI Chief Complaint: Psychiatric Symptoms Time Seen by Provider: 03:58 Travel History International Travel<30 days: No Contact w/Intl Traveler<30days: No Traveled to known affect area: No History of Present Illness HPI Patient comes in requesting psychiatric evaluation. Patient states she hears voices in her head. Denies anything making it better or worse. Patient states she was on medication for this but is out currently. Patient denies any homicidal or suicidal ideations. Patient denies any medical complaints at this time. Denies any chest pain, fevers, shortness breath, nausea, vomiting, loss change in bowel or bladder. Patient is also wanting help get back to [place]. PFSH Past Medical History Cancer: No Cardiovascular Problems: No Cerebrovascular Accident: Yes (CVA 1997) Diabetes: Yes Patient Takes Glucophage: No (HASNT HAD MEDICATION FOR 'YEARS' ) Diminished Hearing: No Headaches: No Psychiatric: Yes (Schizophrenia) Immunizations Current: Yes Myocardial Infarction: Yes (1990, 1996) Schizophrenia: Yes Seizures: No ?: Not LMP: 09/17/16 Menopausal: No : 3 Para: 1 Past Surgical History Abdominal Surgery: Yes (EXLORATORY LAPROSCOPY) Cardiac Surgery: Yes ("CARDIAC IMPLANT") Social History Alcohol Use: No Tobacco Use: Yes (04/20 ppd) Substance Use: No (denies) Allergies-Medications (Allergen,Severity, Reaction): Coded Allergies: No Known Allergies (Unverified , 11/04/16) Reported Meds & Prescriptions Reported Meds & Active Scripts Active Risperdal Consta Inj (Risperidone) 25 Mg Inj 25 Mg IM Q14D This dose of Risperdal Consta is due on 10/19/2016. Risperdal (Risperidone) 2 Mg Tab 2 Mg PO Q12HR 21 Days Continue oral Risperdal for 21 days then stop. Be sure to get your next Risperdal Consta injection. Aspirin Low Strength (Aspirin) 81 Mg Chew 162 Mg CHEW DAILY 15 Days Review of Systems Except as stated in HPI: all other systems reviewed are Neg Physical Exam Narrative GENERAL: Well-developed, overly nourished, in no acute distress, and non-ill appearing. SKIN: Focused skin assessment warm and dry. HEAD: Atraumatic. Normocephalic. EYES: Pupils equal and round. EOMI. No scleral icterus. No injection or drainage. ENT: No nasal bleeding or discharge. Mucous membranes pink and moist. NECK: Trachea midline. Supple. No nuclear rigidity. CARDIOVASCULAR: Regular rate and rhythm. No murmur appreciated. RESPIRATORY: No accessory muscle use. No respiratory distress. Clear to auscultation. Breath sounds equal bilaterally. MUSCULOSKELETAL: No obvious deformities. No clubbing. No cyanosis. No edema. Full range of motion. NEUROLOGICAL: Awake and alert. No obvious cranial nerve deficits. Motor grossly within normal limits. Normal speech. PSYCHIATRIC: Appropriate mood and affect; insight and judgment normal. Data Data Last Documented VS Vital Signs Date Time Temp Pulse Resp B/P Pulse Ox O2 Delivery O2 Flow Rate FiO2 11/04/16 02:50 98.3 101 16 160/95 98 Orders Complete Blood Count With Diff (11/04/16 03:58) Comprehensive Metabolic Panel (11/04/16 03:58) Psych Screen (11/04/16 03:58) Drug Screen, Random Urine (11/04/16 03:58) Alcohol (Ethanol) (11/04/16 03:58) Labs Laboratory Tests Test 11/04/16 04:05 White Blood Count 6.9 TH/MM3 Red Blood Count 4.74 MIL/MM3 Hemoglobin 13.7 GM/DL Hematocrit 40.9 % Mean Corpuscular Volume 86.3 FL Mean Corpuscular Hemoglobin 29.0 PG Mean Corpuscular Hemoglobin 33.6 % Concent Red Cell Distribution Width 13.8 % Platelet Count 217 TH/MM3 Mean Platelet Volume 7.8 FL Neutrophils (%) (Auto) 58.2 % Lymphocytes (%) (Auto) 31.1 % Monocytes (%) (Auto) 8.2 % Eosinophils (%) (Auto) 2.0 % Basophils (%) (Auto) 0.5 % Neutrophils # (Auto) 4.0 TH/MM3 Lymphocytes # (Auto) 2.1 TH/MM3 Monocytes # (Auto) 0.6 TH/MM3 Eosinophils # (Auto) 0.1 TH/MM3 Basophils # (Auto) 0.0 TH/MM3 CBC Comment DIFF FINAL Differential Comment Sodium Level 139 MEQ/L Potassium Level 3.7 MEQ/L Chloride Level 105 MEQ/L Carbon Dioxide Level 26.1 MEQ/L Anion Gap 8 MEQ/L Blood Urea Nitrogen 7 MG/DL Creatinine 0.74 MG/DL Estimat Glomerular Filtration 105 ML/MIN Rate Random Glucose 101 MG/DL Calcium Level 8.6 MG/DL Total Bilirubin 0.2 MG/DL Aspartate Amino Transf 26 U/L (AST/SGOT) Alanine Aminotransferase 28 U/L (ALT/SGPT) Alkaline Phosphatase 103 U/L Total Protein 7.9 GM/DL Albumin 3.8 GM/DL Urine Opiates Screen NEG Urine Barbiturates Screen NEG Urine Amphetamines Screen NEG Urine Benzodiazepines Screen NEG Urine Cocaine Screen NEG Urine Cannabinoids Screen NEG Ethyl Alcohol Level LESS THAN 3 MG/DL MDM Medical Decision Making Medical Screen Exam Complete: Yes Emergency Medical Condition: Yes Differential Diagnosis Homicidal, suicidal, auditory hallucinations, visual hallucinations, schizophrenia, electrolyte abnormality, other Narrative Course Patient was seen and examined. Labs were obtained and reviewed. Patient medically cleared for further treatment and evaluation by psych. Final disposition per psych. Diagnosis Primary Impression: Medical clearance for psychiatric admission Condition: Sam Cali Nov 04, 2016 04:00
[2016-11-04 04:23] LABS: BASOPHIL % 0.5 % (0.0-2.0); EOSINOPHIL # 0.1 TH/MM3 (0-0.4); HEMATOCRIT 40.9 % (35.0-46.0); HEMO FLAGS DIFF FINAL; LYMPH % 31.1 % (9.0-44.0); LYMPHOCYTE # 2.1 TH/MM3 (1.0-4.8); MEAN CELL VOLUME 86.3 FL (80.0-100.0); MEAN CORPUSCULAR HGB CONC 33.6 % (32.0-36.0); MONO % 8.2 % (0.0-8.0); NEUT % 58.2 % (16.0-70.0); PLATELET COUNT 217 TH/MM3 (150-450); RED BLOOD COUNT 4.74 MIL/MM3 (4.00-5.30); RED CELL DISTRIBUTION WIDTH 13.8 % (11.6-17.2); WHITE BLOOD COUNT 6.9 TH/MM3 (4.0-11.0)
[2016-11-04 04:26] LABS: AMPHETAMINE, URINE NEG (NEG); BARBITURATES, URINE NEG (NEG); COCAINE, URINE NEG (NEG)
[2016-11-04 04:35] LABS: ALKALINE PHOSPHATASE 103 U/L (45-117); TOTAL BILIRUBIN ADULT 0.2 MG/DL (0.2-1.0)
[2016-11-04 04:36] LABS: ALT (GPT) 28 U/L (10-53); ANION GAP 8 MEQ/L (5-15); AST (GOT) 26 U/L (15-37); BICARBONATE 26.1 MEQ/L (21.0-32.0); BLOOD UREA NITROGEN 7 MG/DL (7-18); CHLORIDE 105 MEQ/L (98-107); GLOMERULAR FILTRATION RATE 105 ML/MIN (>89); POTASSIUM 3.7 MEQ/L (3.5-5.1); SODIUM (NA) 139 MEQ/L (136-145)
[2016-11-04 07:19] VITALS: BP 147/85; PULSE 69; RESP 17; TEMP 97.6; O2SAT 100
[2016-11-04 12:14] VITALS: BP 136/85; PULSE 74; RESP 16; O2SAT 100
[2016-11-04 13:28] VITALS: BP 135/88
--- NOTE | 2016-11-04 19:22 | PD ---
History of Present Illness Chief Complaint: Psychiatric Symptoms Time Seen by Provider: 19:00 Travel History International Travel<30 Days: No Contact w/Intl Traveler<30days: No Known affected area: No Legal Status Legal Status: Voluntary History of Present Illness: History of Present Illness HPI Patient is a 41 year old female with history of paranoid schizophrenia who comes in to [facility] on a voluntary basis requesting psychiatric evaluation. She is reporting hearing voices , not sleeping for several days, and not having taken medications since she was last here in the hospital. She was admitted to [facility] on September 30, 2016 and was discharged with follow up to [facility] for medication management. She was prescribed Risperdal Consta and was due for an injection on October 19, 2016. Today she tells me that she did not go to [facility] for her medication. Her toxicology is negative for any substances. The patient is seen in J pod. Asleep. Awakens but remains sleepy. She tells me she is hearing voices but does not describe what the voices are saying. Also tells me she does not feel well and that she has been " feeling upset'. She does not elaborate on this and again she appears to be sleepy. In reviewing her EMTR I note that she refused assistance with finding a place to live and elected to go back to the [employer]. It appears that she has been on the streets and has not been caring for herself. [facility] Past Medical History Cancer: No Cardiovascular Problems: No Cerebrovascular Accident: Yes (CVA 1997) Diabetes: Yes Patient Takes Glucophage: No (HASNT HAD MEDICATION FOR 'YEARS' ) Diminished Hearing: No Headaches: No Psychiatric: Yes (Schizophrenia) Immunizations Current: Yes Myocardial Infarction: Yes (1990, 1996) Schizophrenia: Yes Seizures: No ?: Not LMP: 09/17/16 Menopausal: No : 3 Para: 1 Past Surgical History Abdominal Surgery: Yes (EXLORATORY LAPROSCOPY) Cardiac Surgery: Yes ("CARDIAC IMPLANT") Psychiatric History Psychiatric History Hx Psychiatric Treatment: Dx paranoid schizophrenia. Multiple admissions to [facility] since 2014. History of Inpatient Treatment: Yes ([facility]) Guns or firearms in home: No Social History Single homeless, female Hx Alcohol Use: No Hx Tobacco Use: Yes (1/2 ppd) Hx Substance Use: No (denies) Hx of Substance Use Treatment: No Family Psychiatric History Unknown Allergies-Medications (Allergen,Severity, Reaction): Coded Allergies: No Known Allergies (Unverified , 11/04/16) Reported Meds & Prescriptions Reported Meds & Active Scripts Active Risperdal Consta Inj (Risperidone) 25 Mg Inj 25 Mg IM Q14D This dose of Risperdal Consta is due on 10/19/2016. Risperdal (Risperidone) 2 Mg Tab 2 Mg PO Q12HR 21 Days Continue oral Risperdal for 21 days then stop. Be sure to get your next Risperdal Consta injection. Aspirin Low Strength (Aspirin) 81 Mg Chew 162 Mg CHEW DAILY 15 Days Review of Systems ROS Limitations: Psychotic Exam Alert: Yes [place]: Person, Place, Date Mood: Other (withdrawn) Affect: Restricted Speech: Clear (Minimal interactions.) Eye Contact: None Memory Intact: Comment (not tested) Hallucinations: Auditory Delusions: No Suicidal: Ideation (deneis) Homicidal: Ideation (denies) Insight/Judgement Poor. Poor MDM Medical Decision Making Medical Record Reviewed: Yes Assessment/Plan 41 year old female with history of paranoid schizophrenia here on a voluntary basis reporting auditory hallucinations, not sleeping as well as poor medication compliance. At this time inpatient psychiatric admission is recommended to further evaluate, to restart psychiatric medication as well as to maintain her safety. Orders Complete Blood Count With Diff (11/04/16 03:58) Comprehensive Metabolic Panel (11/04/16 03:58) Psych Screen (11/04/16 03:58) Drug Screen, Random Urine (11/04/16 03:58) Alcohol (Ethanol) (11/04/16 03:58) Diet Regular Basic (11/04/16 Breakfast) Diet Regular Basic (11/04/16 Dinner) Results Vital Signs Date Time Temp Pulse Resp B/P Pulse Ox O2 Delivery O2 Flow Rate FiO2 11/04/16 13:28 74 16 135/88 100 11/04/16 12:14 74 16 136/85 100 Room Air 11/04/16 07:19 69 17 11/04/16 07:19 97.6 69 17 147/85 100 Room Air 11/04/16 02:50 98.3 101 16 160/95 98 Laboratory Tests Test 11/04/16 04:05 White Blood Count 6.9 Red Blood Count 4.74 Hemoglobin 13.7 Hematocrit 40.9 Mean Corpuscular Volume 86.3 Mean Corpuscular Hemoglobin 29.0 Mean Corpuscular Hemoglobin 33.6 Concent Red Cell Distribution Width 13.8 Platelet Count 217 Mean Platelet Volume 7.8 Neutrophils (%) (Auto) 58.2 Lymphocytes (%) (Auto) 31.1 Monocytes (%) (Auto) 8.2 Eosinophils (%) (Auto) 2.0 Basophils (%) (Auto) 0.5 Neutrophils # (Auto) 4.0 Lymphocytes # (Auto) 2.1 Monocytes # (Auto) 0.6 Eosinophils # (Auto) 0.1 Basophils # (Auto) 0.0 CBC Comment DIFF FINAL Differential Comment Sodium Level 139 Potassium Level 3.7 Chloride Level 105 Carbon Dioxide Level 26.1 Anion Gap 8 Blood Urea Nitrogen 7 Creatinine 0.74 Estimat Glomerular Filtration 105 Rate Random Glucose 101 Calcium Level 8.6 Total Bilirubin 0.2 Aspartate Amino Transf 26 (AST/SGOT) Alanine Aminotransferase 28 (ALT/SGPT) Alkaline Phosphatase 103 Total Protein 7.9 Albumin 3.8 Urine Opiates Screen NEG Urine Barbiturates Screen NEG Urine Amphetamines Screen NEG Urine Benzodiazepines Screen NEG Urine Cocaine Screen NEG Urine Cannabinoids Screen NEG Ethyl Alcohol Level LESS THAN 3 Diagnosis Primary Impression: Paranoid schizophrenia Admitting Information Admitting Physician Requests: Admit Condition: Stable Cruz,Ros Box [facility] Nov 04, 2016 19:22
[2016-11-04] MEDS ORDERED: MAGNESIUM HYDROXIDE SUSP 30 ML CUP PO PRN (19:30)
[2016-11-04] MEDS ORDERED: ACETAMINOPHEN 325 MG TAB PO PRN (19:30)
[2016-11-04] MEDS ORDERED: ALUMINUM/MAGNESIUM/SIMETH 30 ML CUP PO PRN (19:30)
[2016-11-04 21:50] VITALS: BP 137/83; PULSE 85; RESP 16; TEMP 98.1; O2SAT 95
[2016-11-05 06:09] VITALS: BP 127/71; PULSE 90; RESP 16; TEMP 96.2; O2SAT 93
[2016-11-05 10:19] LABS: ANION GAP 8 MEQ/L (5-15); BLOOD UREA NITROGEN 8 MG/DL (7-18); CHLORIDE 105 MEQ/L (98-107); GLOMERULAR FILTRATION RATE 116 ML/MIN (>89); POTASSIUM 3.7 MEQ/L (3.5-5.1); SODIUM (NA) 140 MEQ/L (136-145)
[2016-11-05 10:22] LABS: LDL CHOLESTEROL 104 MG/DL (0-99)
--- NOTE | 2016-11-05 13:13 | HHI.HP ---
Provisional Diagnosis Admission Date Nov 04, 2016 at 19:25 [place] I. 1. Schizophrenia, paranoid type, acute exacerbation [place] II. Deferred [place] V. GAF is 30 presently Certification of Person's Competence To Provide Express and Informed Consent I have personally examined Chrissie Ramirez , a person being served at [facility] on, Nov 05, 2016 13:13. Express and informed consent means consent voluntarily given in writing, by a competent person, after sufficient explanation and disclosure of the subject matter involved to enable the person to make a knowing and willful decision without any element of force, fraud, deceit, duress, or other form of constraint or coercion. This person is 18 years of age or older, is not now known to be incompetent to consent to treatment with a guardian advocate, and does not have a health care surrogate or proxy currently making medical treatment decisions. I have found this person to be one of the following: [x] Competent to provide express and informed consent, as defined above, for voluntary admission to this facility and is competent to provide express and informed consent for treatment. He/she has the consistent capacity to make well reasoned, willful, and knowing decisions concerning his or her medical or mental health treatment. The person fully and consistently understands the purpose of the admission for examination/placement and is fully capable of personally exercising all rights assured [place] [] Incompetent to provide express and informed consent to voluntary admission, and this is incompetent to provide express and informed consent to treatment. The person must be transferred to involuntary status and a petition for a guardian advocate filed with the Circuit Court. [] Refusing to provide express and informed consent to voluntary admission but is competent to provide express and informed consent for treatment. The person must be discharged or transferred to involuntary status. Form shall be completed within 24 hours of a person's arrival at the receiving facility and filed in the clinical record of each person: 1. Admitted on a voluntary basis 2. Permitted to provide express and informed consent to his/her own treatment 3. Allowed to transfer from involuntary to voluntary status 4. Prior to permitting a person to consent to his or her own treatment after having been previously found incompetent to consent to treatment. History of Present Illness Capacity: Has Capacity HPI Ms. Ramirez is a 41-year-old female with a history of paranoid schizophrenia who presented on a voluntary basis to the ED complaining of voices in her head. Patient was recently discharged from the inpatient psychiatric unit here in the middle of September on Risperdal Consta. The patient was evaluated by the psychiatric nurse practitioner in the emergency department , and I see it documented that the patient did not follow up for subsequent injections. Electronic medical record reviewed. Patient seen and examined with nurse. Chart reviewed. Case discussed with nursing staff. On my examination today, the patient presents as fairly disorganized. She rambles about "moving into [place] with [employer]. She endorses auditory hallucinations of "I know I'm not liked a lot." No visual hallucinations. Affect flat. No depressive or hypomanic/manic symptoms. She alludes to her "genital situation," and this likely refers to a long-standing delusion of the patient's. She denies any suicidal or homicidal ideation. Psychiatric interview somewhat limited because of her degree of thought disorganization. Past psychiatric history: Patient has a history of schizophrenia. She has multiple prior admissions within our system, most recently in September. She was discharged on Risperdal Consta but says that she didn't follow-up and get subsequent injections. She denies any interval admissions since last time she was here. No history of suicide attempts. Family history: No reported family history of mental illness. Chemical dependency history: Patient denies any abuse of drugs or alcohol. Social history: Patient is presently homeless. She continues to articulate a desire to return to [place] or perhaps to live on the campus of [facility]. Review of Systems ROS Limitations: Psychotic, Poor Historian Except as stated in HPI: all other systems reviewed are Neg Past Psych History Psychological trauma history No reported trauma history. Violence risk - others (6 mos) Lower imminent risk. Denies HI. Violence risk - self (6 mos) Concern for risk secondary to self neglect. Denies SI. Substance Abuse History Drugs/Alcohol past 12 months See above Past Family Social History Coded Allergies: No Known Allergies (Unverified , 11/04/16) Past Medical History See electronic medical record Active Scripts Risperidone Inj (Risperdal Consta Inj)25 Mg Inj25 Mg IM Q14D #2 VIAL Ref 0 This dose of Risperdal Consta is due on 10/19/2016. Prov:Jens Arriaza MD 10/05/16 Risperidone (Risperdal)2 Mg Tab2 Mg PO Q12HR 21 Days Ref 0 Continue oral Risperdal for 21 days then stop. Be sure to get your next Risperdal Consta injection. Prov:Jens Arriaza MD 10/05/16 Aspirin (Aspirin Low Strength)81 Mg [id number] Mg CHEW DAILY 15 Days Ref 1 Prov:Jens Arriaza MD 10/05/16 Discontinued Scripts Cholecalciferol (D 1000)1,000 Unit Tab2,000 Units PO DAILY 15 Days Ref 1 Prov:Jens Arriaza MD 10/05/16 Current Medications Medications (Trade) Dose Ordered Sig/Tan Route Start Time Stop Time Status Last Admin (Tylenol) 650 mg Q4H PRN PO 11/04/16 19:30 (Milk Of Magnesia Liq) 30 ml DAILY PRN PO 11/04/16 19:30 (Mag-Al Plus Susp Liq) 30 ml Q6H PRN PO 11/04/16 19:30 Patient's Strengths (min. 2) In monitored setting. Verbally fluent. Physical Exam Physical exam completed by emergency department provider. On my exam, patient appears to be in no acute physical distress. No motor abnormalities noted. Labs and vitals reviewed: Vital Signs Vital Signs Date Time Temp Pulse Resp B/P Pulse Ox O2 Delivery O2 Flow Rate FiO2 11/05/16 06:09 96.2 90 16 127/71 93 11/04/16 12:14 Room Air Lab Results Laboratory Tests Test 11/04/16 11/05/16 04:05 08:26 White Blood Count 6.9 TH/MM3 Red Blood Count 4.74 MIL/MM3 Hemoglobin 13.7 GM/DL Hematocrit 40.9 % Mean Corpuscular Volume 86.3 FL Mean Corpuscular Hemoglobin 29.0 PG Mean Corpuscular Hemoglobin 33.6 % Concent Red Cell Distribution Width 13.8 % Platelet Count 217 TH/MM3 Mean Platelet Volume 7.8 FL Neutrophils (%) (Auto) 58.2 % Lymphocytes (%) (Auto) 31.1 % Monocytes (%) (Auto) 8.2 % Eosinophils (%) (Auto) 2.0 % Basophils (%) (Auto) 0.5 % Neutrophils # (Auto) 4.0 TH/MM3 Lymphocytes # (Auto) 2.1 TH/MM3 Monocytes # (Auto) 0.6 TH/MM3 Eosinophils # (Auto) 0.1 TH/MM3 Basophils # (Auto) 0.0 TH/MM3 CBC Comment DIFF FINAL Differential Comment Total Bilirubin 0.2 MG/DL Aspartate Amino Transf 26 U/L (AST/SGOT) Alanine Aminotransferase 28 U/L (ALT/SGPT) Alkaline Phosphatase 103 U/L Total Protein 7.9 GM/DL Albumin 3.8 GM/DL Urine Opiates Screen NEG Urine Barbiturates Screen NEG Urine Amphetamines Screen NEG Urine Benzodiazepines Screen NEG Urine Cocaine Screen NEG Urine Cannabinoids Screen NEG Ethyl Alcohol Level LESS THAN 3 MG/DL Sodium Level 140 MEQ/L Potassium Level 3.7 MEQ/L Chloride Level 105 MEQ/L Carbon Dioxide Level 27.0 MEQ/L Anion Gap 8 MEQ/L Blood Urea Nitrogen 8 MG/DL Creatinine 0.68 MG/DL Estimat Glomerular Filtration 116 ML/MIN Rate Random Glucose 127 MG/DL Calcium Level 8.7 MG/DL Triglycerides Level 103 MG/DL Cholesterol Level 172 MG/DL LDL Cholesterol 104 MG/DL HDL Cholesterol 47.0 MG/DL Cholesterol/HDL Ratio 3.65 RATIO Mental Status Examination Speech: Incoherent (at times), Other (rambling) Orientation: Person, Place Memory: Impaired (describe) (confabulated secondary to psychosis) Thought Process: Thought Blocking, Other (disorganized) Thought Content: Paranoid Hallucination Type: Auditory Attention and Concentration: Easily Distracted Suicidal Ideation: No Previous Suicide Attempts: No Homicidal Ideation: No Previous Homicide Attempts: No Insight: Poor Judgment: Poor Affect: Other (Flat) Mood: Other (Slightly dysphoric) Assessment & Plan Problem List: (1) Paranoid schizophrenia ICD Code: F20.0 Assessment & Plan This is a 41-year-old female with psychiatric history as detailed above who presents voluntarily for psychiatric admission. Patient is decompensated with respect to her psychotic illness. She is presently disorganized, endorsing auditory hallucinations and somewhat paranoid. She apparently did not follow-up for her long-acting injectable Risperdal injection. Given that she tolerated this agent well without side effects, I will now try the Invega Sustenna as this has 2 advantages that may help prevent readmission once again, namely longer duration of action and no need for oral supplementation. I will plan to admit the patient for a medication adjustment. Admit inpatient. Voluntary status. Invega Sustenna 234 mg IM today. I will plan to administer the booster dose in 4-7 days as recommended by the ethernet network architect. This agent does not require supplementation with an oral antipsychotic. Patient has been on a mood stabilizer in the past, to consider adding one. Ativan as needed for anxiety, Cogentin as the for EPS, Benadryl as needed for sleep. Vitals every shift. Counselor to see. Disposition planning. Estimated length of stay: 5-7 days. Discharge Planning Pending stabilization Request HC Surrog/Guard Advoc?: No Jens Arriaza MD Nov 05, 2016 13:13
[2016-11-05] MEDS ORDERED: BENZTROPINE MESYLATE 2 MG/2 ML VIAL IM PRN (13:15)
[2016-11-05] MEDS ORDERED: LORazepam 2 MG/ML VIAL IM PRN (13:15)
[2016-11-05] MEDS ORDERED: BENZTROPINE MESYLATE 1 MG TAB PO PRN (13:15)
[2016-11-05] MEDS ORDERED: PALIPERIDONE PALMITATE 234 MG/1.5 ML SYRINGE IM ONE (16:00)
[2016-11-05 18:00] VITALS: BP 124/80; PULSE 70; RESP 18; TEMP 98.1; O2SAT 96
[2016-11-05 18:07] LABS: HEMOGLOBIN A1b 1.6 %; HEMOGLOBIN Ao 85.1 %; HEMOGLOBIN LA1C 2.2 %; HEMOGLOBIN P3 3.8 %
[2016-11-06 06:09] VITALS: BP 108/67; PULSE 67; RESP 18; TEMP 97.6
--- NOTE | 2016-11-06 11:47 | HHI.PYPN ---
Subjective Remarks Patient seen and examined with nurse. Chart reviewed. Case discussed with nursing staff. Nurse reports that the patient was out of her room for breakfast this morning but since then has been seclusive to room with the covers over her head. On my exam, the patient is somewhat more interactive. She smiles at intervals. She remains internally preoccupied. She elaborates on her concerns vis--vis the "genital situation." She believes, "my genitals have walked off and are in some kind of genital organization with the Surgeon General." Denies side effects from Sustenna. No physical complaints. Review of Systems ROS Limitations: Psychotic, Poor Historian Except as stated in HPI: all other systems reviewed are Neg Objective Alert: Yes [place]: Person, Place, Date Mood: Happy Affect: Euthymic (somewhat silly affect) Memory Intact: Comment (Not formally assessed) Hallucinations: Auditory (int stim) Delusions: Yes Delusion Type: Paranoid (bizarre) Suicidal: Ideation (No SI) Homicidal: Ideation (No HI) Insight/Judgment Poor Remarks No motor abnormalities noted. Thought process fairly linear within delusional system. Grooming and hygiene fair. Labs Labs reviewed. Vitals/IOs Vital Signs Date Time Temp Pulse Resp B/P Pulse Ox O2 Delivery O2 Flow Rate FiO2 11/06/16 06:09 97.6 67 18 108/67 11/05/16 18:00 96 11/04/16 12:14 Room Air Intake and Output 11/05/16 11/05/16 11/05/16 07:59 15:59 23:59 Intake Total 840 ml 480 ml Balance 840 ml 480 ml Assessment & Plan Problem List: (1) Paranoid schizophrenia ICD Code: F20.0 Assessment & Plan Patient received initial dose of Invega Sustenna yesterday. Plan to administer booster dose of Invega Sustenna after the weekend. In the meantime, continue to monitor on the inpatient unit. Continue other medications and care as ordered. Justification for Cont. Inpt. Impairment in reality construction. Medication changes anticipated. High risk for decompensation in less restrictive environment. Discharge Planning Pending psychiatric stabilization. Request HC Surrog/Guard Advoc?: No Jens Arriaza MD Nov 06, 2016 11:47
[2016-11-06 15:59] VITALS: BP 138/84; PULSE 71; RESP 17; TEMP 97.9; O2SAT 98
[2016-11-06] MEDS: LORazepam 1 MG TAB PO PRN (17:46)
[2016-11-07 05:37] VITALS: BP 109/65; PULSE 65; RESP 18; TEMP 98.1; O2SAT 98
--- NOTE | 2016-11-07 15:26 | HHI.PYPN ---
Subjective Remarks Patient was seen and case discussed with nursing. Patient is pleasant and cooperative with exam. She does have good insight into her mental health. She states that her hallucinations have resolved. She is sitting in the dayroom and social with others. Compliant with her medications. Continues to make bizarre statements about her genitals Objective Alert: Yes [place]: Person, Place, Date Mood: Happy Affect: Euthymic (somewhat silly affect) Memory Intact: Comment (Not formally assessed) Hallucinations: Auditory (int stim) Delusions: Yes Delusion Type: Paranoid (bizarre) Suicidal: Ideation (No SI) Homicidal: Ideation (No HI) Insight/Judgment Poor Vitals/IOs Vital Signs Date Time Temp Pulse Resp B/P Pulse Ox O2 Delivery O2 Flow Rate FiO2 11/07/16 05:37 98.1 65 18 109/65 98 11/04/16 12:14 Room Air Assessment & Plan Problem List: (1) Paranoid schizophrenia ICD Code: F20.0 Assessment & Plan Continue current treatment plan Justification for Cont. Inpt. Patient would decompensate in a less restrictive setting Request HC Surrog/Guard Advoc?: No Franklin Soto DO Nov 07, 2016 15:26
[2016-11-07 18:00] VITALS: BP 105/68; PULSE 71; RESP 18; TEMP 96.8; O2SAT 97
[2016-11-07] MEDS: diphenhydrAMINE HCL 50 MG CAP PO PRN (21:12)
[2016-11-08 05:34] VITALS: BP 100/54; PULSE 61; RESP 17; TEMP 97.7; O2SAT 100
[2016-11-08 09:09] VITALS: BP 104/57; PULSE 67
--- NOTE | 2016-11-08 12:22 | HHI.PYPN ---
Subjective Remarks Patient was seen and case discussed with nursing. Per nursing patient is spending the day in bed. Interviewed in bed today. Patient is pleasant and cooperative with exam. Continues to state that the hallucinations have resolved. She denies ideas of reference, thought insertion, paranoia. Denies suicidal ideation intent or plan. Mood is "little sad." Objective Alert: Yes [place]: Person, Place, Date Mood: Other (little sad) Affect: Restricted Memory Intact: Comment (Not formally assessed) Hallucinations: Auditory (int stim) Delusions: Yes Delusion Type: Paranoid (none today) Suicidal: Ideation (No SI) Homicidal: Ideation (No HI) Insight/Judgment Poor Vitals/IOs Vital Signs Date Time Temp Pulse Resp B/P Pulse Ox O2 Delivery O2 Flow Rate FiO2 11/08/16 09:09 67 104/57 11/08/16 05:34 97.7 17 100 11/04/16 12:14 Room Air Assessment & Plan Problem List: (1) Paranoid schizophrenia ICD Code: F20.0 Assessment & Plan Continue current treatment plan Justification for Cont. Inpt. Patient will decompensate in a less restrictive setting Request HC Surrog/Guard Advoc?: No Franklin Soto DO Nov 08, 2016 12:22
[2016-11-08] MEDS: diphenhydrAMINE HCL 50 MG CAP PO PRN (21:07)
[2016-11-09 05:27] VITALS: BP 108/61; PULSE 58; RESP 16; TEMP 97.9; O2SAT 98
--- NOTE | 2016-11-09 09:34 | HHI.PYPN ---
Subjective Remarks Patient seen and examined with counselor. Chart reviewed. Case discussed with nursing staff. On my examination today, the patient initially mistakes the counselor for someone she has seen on television. She denies audiovisual hallucinations. Affect is bright and euthymic. She continues to ruminate on her "genital situation." She tells me "I don't know what to do. How would you feel if someone took your genitals? The Department of Health and the board of [facility] has to be notified. I have to get the genital situation together." Denies side effects from medications. No physical complaints otherwise. Remains agreeable to assisted living placement. Review of Systems Except as stated in HPI: all other systems reviewed are Neg Objective Alert: Yes [place]: Person, Place, Date Mood: Happy Affect: Euthymic Memory Intact: Comment (Not formally assessed) Hallucinations: Other (remains int stim) Delusions: Yes Delusion Type: Paranoid (re: genital situation) Suicidal: Ideation (No SI) Homicidal: Ideation (No HI) Insight/Judgment Poor Remarks No motor abnormalities noted. Thought process generally linear. Labs Labs reviewed. Vitals/IOs Vital Signs Date Time Temp Pulse Resp B/P Pulse Ox O2 Delivery O2 Flow Rate FiO2 11/09/16 05:27 97.9 58 16 108/61 98 Assessment & Plan Problem List: (1) Paranoid schizophrenia ICD Code: F20.0 Assessment & Plan Plan for booster dose of Invega Sustenna later this week. Continue to monitor on the inpatient unit. Continue other medications and care as ordered. Justification for Cont. Inpt. Anticipated medication changes. Impairment in reality construction. Discharge Planning Possible placement. Request HC Surrog/Guard Advoc?: No Jens Arriaza MD Nov 09, 2016 09:34
[2016-11-09 15:49] VITALS: BP 104/61; PULSE 65; RESP 18; TEMP 98.1; O2SAT 99
[2016-11-09 18:00] VITALS: BP 104/61; PULSE 65; RESP 18; TEMP 98.1; O2SAT 99
[2016-11-10 06:01] VITALS: BP 92/49; PULSE 62; RESP 16; TEMP 98.1; O2SAT 98
--- NOTE | 2016-11-10 15:42 | HHI.PYPN ---
Subjective Remarks Patient seen and examined with counselor and nurse. Chart reviewed. Case discussed in treatment team. Counselor has arranged for patient's placement in assisted living facility. On my exam, patient agreeable to assisted living placement. In good spirits. Denies SI, HI or AVH. Denies side effects from medications. No new physical complaints. Review of Systems ROS Limitations: Poor Historian Except as stated in HPI: all other systems reviewed are Neg Objective Alert: Yes [place]: Person, Place, Date Mood: Happy Affect: Euthymic (remains euthymic) Memory Intact: Comment (Not formally assessed) Hallucinations: Other (less internally preoccupied) Delusions: Yes Delusion Type: Paranoid (re: genital situation ongoing, suspect fixed) Suicidal: Ideation (No SI) Homicidal: Ideation (No HI) Insight/Judgment Poor Remarks No motor abnormalities noted. Grooming and hygiene fair. Thought process generally linear. Labs Labs reviewed. Vitals/IOs Vital Signs Date Time Temp Pulse Resp B/P Pulse Ox O2 Delivery O2 Flow Rate FiO2 11/10/16 06:01 98.1 62 16 92/49 98 Assessment & Plan Problem List: (1) Paranoid schizophrenia ICD Code: F20.0 Assessment & Plan Plan to administer booster dose of Invega Sustenna in the morning. Continue to monitor on the inpatient unit. Continue other medications and care as ordered. Justification for Cont. Inpt. Anticipated medication adjustments. Discharge Planning Probable discharge to assisted living facility after she receives Invega Sustenna tomorrow. Request HC Surrog/Guard Advoc?: No Jens Arriaza MD Nov 10, 2016 15:42
--- NOTE | 2016-11-10 16:30 | PD.TTN ---
Present for Treatment Team Treatment Team Staff: Provider (Dr. Day), Nurse (Tiffanie), Psych Therapist (Charisse) Patient Problems 1. Discharge planning 2. Medication compliance 3. Knowledge deficit 4. Lack of coping skills Progress Toward Goals Provider Input: Patient will recieve invega injection tomorrow and will be discharge to [facility] tomorrow. Patient continues to pace around unit and talk to herself but is overall harmless and has no behavioral issues. Nurse Input: Patient is cooperative but is noted to be pacing around unit, internally stimulated. Patient will recieve injection tomorrow. Psych Therapist Input: Patient is calm and has a smiling affect. Patient is in agreement to go to [facility]. Charisse Calix [facility] Nov 10, 2016 16:30
[2016-11-10] MEDS: LORazepam 1 MG TAB PO PRN (16:41)
[2016-11-10 18:00] VITALS: BP 114/64; PULSE 68; RESP 18; TEMP 98.2; O2SAT 100
[2016-11-10] MEDS: diphenhydrAMINE HCL 50 MG CAP PO PRN (20:56)
[2016-11-11] MEDS ORDERED: PALIPERIDONE PALMITATE 156 MG/ML SYRINGE IM ONE (06:00)
[2016-11-11 06:09] VITALS: BP 115/61; PULSE 61; RESP 18; TEMP 98.6; O2SAT 99
[2016-11-11] MEDS ORDERED: PALI156P IM (11:39)
--- NOTE | 2016-11-11 11:39 | HHI.DS ---
Psychiatry Discharge Summary Inpatient Psychiatric care?: Yes Advance Directive: No Reason Not Provided: not interested Mental Health AdvanceDirective: No Health Care Proxy: No Admission Admission Date Nov 04, 2016 at 19:25 Admission Diagnosis: (1) Paranoid schizophrenia ICD Code: F20.0 Brief History Ms. Ramirez is a 41-year-old female with a history of paranoid schizophrenia who presented on a voluntary basis to the ED complaining of voices in her head. Patient was recently discharged from the inpatient psychiatric unit here in the middle of September on Risperdal Consta. The patient was evaluated by the psychiatric nurse practitioner in the emergency department , and I see it documented that the patient did not follow up for subsequent injections. Electronic medical record reviewed. Patient seen and examined with nurse. Chart reviewed. Case discussed with nursing staff. On my examination today, the patient presents as fairly disorganized. She rambles about "moving into [place] with [employer]. She endorses auditory hallucinations of "I know I'm not liked a lot." No visual hallucinations. Affect flat. No depressive or hypomanic/manic symptoms. She alludes to her "genital situation," and this likely refers to a long-standing delusion of the patient's. She denies any suicidal or homicidal ideation. Psychiatric interview somewhat limited because of her degree of thought disorganization. Past psychiatric history: Patient has a history of schizophrenia. She has multiple prior admissions within our system, most recently in September. She was discharged on Risperdal Consta but says that she didn't follow-up and get subsequent injections. She denies any interval admissions since last time she was here. No history of suicide attempts. Family history: No reported family history of mental illness. Chemical dependency history: Patient denies any abuse of drugs or alcohol. Social history: Patient is presently homeless. She continues to articulate a desire to return to [place] or perhaps to live on the campus of [facility]. Tobacco Use In Past 30 Days: No Tobacco Past 30 Days Alcohol Use: Never Hospital Course Patient was admitted to a locked, inpatient psychiatric unit. Appropriate precautions were in place throughout patient's hospital stay. Patient was seen and examined daily on the unit by psychiatry and also visited by counselor. Psychotropic medications were adjusted. Patient was started on long-acting injectable Invega Sustenna, which she tolerated well. Counselor has organized placement in assisted living facility for this patient, and it is hoped that stable living environment will enable better medication adherence and reduce frequency of relapse. There was no evidence of any suicidality or homicidality on the inpatient unit. Patient remained in good behavioral control. On the day of discharge: Patient seen and examined with nurse. Chart reviewed. Case discussed with nursing staff. Patient no behavioral problem overnight. On my examination today, the patient is in good spirits. She remains agreeable to assisted living placement. She denies any suicidal or homicidal ideation, intent or plan on direct questioning. No issues with mood. The patient does articulate ongoing delusions regarding her genitals as previously documented, but I suspect that these are fixed, and in any event these are not terribly troublesome for her. There is no other delusional material, and the patient denies AVH. Weighing the acute, chronic, and protective factors and based on the available evidence, I gas engine operator generators to a reasonable degree of medical certainty that the patient is at low imminent risk of harm to self or others from a mental illness as defined under the Avila act and her level of function is adequate for outpatient care. Patient has maximized benefit from this inpatient psychiatric hospital stay and will be discharged today with psychiatric follow-up as arranged by counselor. Patient is also to follow-up with primary care. Patient reminded to return to the psychiatric emergency room as needed for concerning psychiatric symptoms. Results Blood Pressure 115 / 61 Vital Signs Date Time Temp Pulse Resp B/P Pulse Ox O2 Delivery O2 Flow Rate FiO2 11/11/16 06:09 98.6 61 18 115/61 99 Item Value Date Time White Blood Count 6.9 TH/MM3 11/04/16 0405 Hemoglobin 13.7 GM/DL 11/04/16 0405 Platelet Count 217 TH/MM3 11/04/16 0405 Sodium Level 140 MEQ/L 11/05/16 0826 Potassium Level 3.7 MEQ/L 11/05/16 0826 Chloride Level 105 MEQ/L 11/05/16 0826 Carbon Dioxide Level 27.0 MEQ/L 11/05/16 0826 Blood Urea Nitrogen 8 MG/DL 11/05/16 0826 Creatinine 0.68 MG/DL 11/05/16 0826 Estimat Glomerular Filtration Rate 116 ML/MIN 11/05/16 0826 Hemoglobin A1c 5.8 % 11/05/16 0826 Aspartate Amino Transf (AST/SGOT) 26 U/L 11/04/16 0405 Alanine Aminotransferase (ALT/SGPT) 28 U/L 11/04/16 0405 Alkaline Phosphatase 103 U/L 11/04/16 0405 Urine Opiates Screen NEG 11/04/16 0405 Urine Barbiturates Screen NEG 11/04/16 0405 Urine Amphetamines Screen NEG 11/04/16 0405 Urine Benzodiazepines Screen NEG 11/04/16 0405 Urine Cocaine Screen NEG 11/04/16 040 Urine Cannabinoids Screen NEG 11/04/16 040 Ethyl Alcohol Level LESS THAN 3 MG/DL 11/04/16 040 Summary of Procedures None done Imaging None done Pending results at discharge: No Medications # of Antipsychotic meds at D/C: 1 Approp Antipsych med options 1 - Minimum of three failed multiple trials of monotherapy. 2 - Documented plan to taper to monotherapy due to previous use of multiple meds OR cross-taper in progress at D/C. 3 - Documentation of augmentation of Clozapine. 4 - Justification other than those listed in allowable values 1-3, document here : Discharge Discharge Date: Nov 11, 2016 Discharge Diagnosis: (1) Paranoid schizophrenia Diagnosis: Principal (stable) ICD Code: F20.0 Mental Status Exam at Disch Patient is in hospital gown. She is fairly well groomed and maintaining basic hygiene. She is awake and alert and oriented to person and hospital at least. No abnormal motor movements noted. Speech is within normal limits for rate, tone and volume. Mood is fair and affect is blunted. Thought process linear. No loosening of associations. Delusions regarding genitals as above but no other delusional material. Denies audiovisual hallucinations. Denies suicidal or homicidal ideation, intent or plan. Insight and judgment are chronically poor. Pt Condition on Discharge: Stable Discharge Disposition: [facility] Discharge Instructions Diet Instructions: As Tolerated, No Restrictions Activities you can perform: Weight Bearing as Shahab Scheduled Appointment: as per counselor's notes New Medications: Paliperidone Palmitate Inj (Invega Sustenna Inj) 156 Mg/Ml Inj 156 MG IM Q28D This dose of Invega Sustenna is due on 12/09/2016. Mental Health # 1 Ref 0 VIAL Discontinued Medications: Aspirin (Aspirin Low Strength) 81 Mg Chew 162 MG CHEW DAILY Health Days 15 Ref 1 EA Risperidone (Risperdal) 2 Mg Tab 2 MG PO Q12HR Continue oral Risperdal for 21 days then stop. Be sure to get your next Risperdal Consta injection. Mental Health Days 21 Ref 0 TAB Risperidone Inj (Risperdal Consta Inj) 25 Mg Inj 25 MG IM Q14D This dose of Risperdal Consta is due on 10/19/2016. Mental Health # 2 Ref 0 VIAL Discharge Time <= 30 minutes Discharge/Advance Care Plan Health Problems: (1) Paranoid schizophrenia Goals to promote your health * To prevent worsening of your condition and complications * To maintain your health at the optimal level Directions to meet your goals Take your medications as prescribed Follow your dietary instruction Follow activity as directed Keep your appointments as scheduled Take your immunizations and boosters as scheduled If your symptoms worsen call your PCP, if no PCP go to Urgent Care Center or Emergency Room For 09/11 questions related to your inpatient stay or results of tests pending at discharge, please contact Dr. Jens Arriaza at Smoking is Dangerous to Your Health. Avoid second hand smoking Jens Arriaza MD Nov 11, 2016 11:39
== END 2016-11-11 13:55 | disposition home or self-care (01) | DRG 885 ==
LOC: NEPD 02:48 → NEDA 19:25 → H260 21:51
PROVIDERS: ADMIT Psychiatry & Neurology Psychiatry; ATTEND Psychiatry & Neurology Psychiatry
DX: F20.0 Paranoid schizophrenia (principal); E11.9 Type 2 diabetes mellitus without complications; Z86.73 Personal history of transient ischemic attack (TIA), and cerebral infarction without residual deficits; Z59.0 Homelessness; F17.210 Nicotine dependence, cigarettes, uncomplicated; F41.9 Anxiety disorder, unspecified
CPT/HCPCS: 80048; 80053; 80061; 80307; 83036; 85025; J2426; Q0163